=== PATIENT | male | born 1950 | race Caucasian/White ===

== ENCOUNTER 2020-08-31 08:54 | Outpatient (REF) | payer BC, SELFPAY ==
--- NOTE | ~2020-08-31 | US_ITS ---
EXAMINATION: US RETROPERITONEAL LIMITED (RENAL ONLY) CLINICAL INFORMATION: History of renal stones, left renal cancer. COMPARISON: Renal ultrasound dated 08/27/2019 and earlier TECHNIQUE: Real-time imaging of the kidneys. FINDINGS: RIGHT KIDNEY: 12.9 x 6.2 x 6.1 cm (SAG x AP x TRV). The kidney is normal in size, contour, and echogenicity. Renal cortical thickness is normal. No renal calculi or hydronephrosis. Multiple simple appearing right renal cysts are present, the largest measuring 5.7 cm in the upper pole the right kidney. There is a 1.4 cm cyst in the right mid kidney with a peripheral echogenic focus which may represent a calcification or adjacent calcified vessel. This finding has been present across multiple prior studies, for example 11/28/2016 image LEFT KIDNEY: 11.7 x 5.5 x 6.2 cm (SAG x AP x TRV). The kidney is normal in size, contour, and echogenicity. Renal cortical thickness is normal. No hydronephrosis. Multiple left renal cysts are present the largest is exophytic from the upper pole, 3 cm in diameter. There is a 3 mm echogenic calcified shadowing calculus in the left mid-lower kidney. US/US renal BI IMPRESSION: 3 mm nonobstructing left renal calculus. No hydronephrosis. Multiple bilateral renal cysts. There is a calcification in the periphery of a 1.4 cm right mid renal cyst, present previously as well.
[2020-08-31 11:03] LABS: Prostate Specific Antigen 2.38 ng/mL (<0.05-4.0)
== END 2020-08-31 08:55 | disposition home or self-care (01) ==
LOC: HO.US 08:54
PROVIDERS: Visit Provider Urology
DX: Z12.5 Encounter for screening for malignant neoplasm of prostate (principal); C64.2 Malignant neoplasm of left kidney, except renal pelvis; N40.1 Benign prostatic hyperplasia with lower urinary tract symptoms; N20.0 Calculus of kidney; Z87.442 Personal history of urinary calculi
CPT/HCPCS: 36415; 76775; 84153

== ENCOUNTER 2020-09-11 11:50 | Emergency (ER) | payer BC, SELFPAY ==
--- NOTE | ~2020-09-11 | CT_ITS ---
EXAMINATION: CT ABDOMEN AND PELVIS WITHOUT CONTRAST CLINICAL INFORMATION: Flank pain COMPARISON: Renal ultrasound 08/31/2020 TECHNIQUE: Multidetector volumetric imaging was performed from the superior aspect of the liver through the pubic symphysis. Sagittal and coronal reformatted images were obtained on the technologist's workstation. This CT examination was performed using dose optimization techniques as appropriate, variously including the following: *Automated exposure control *Adjustment of mA and/or kV according to patient size (this includes techniques or standardized protocols for targeted exams where dose is matched to indication/reason for exam; i.e. extremities or head) *Use of iterative reconstruction technique DLP: 579 mGy-cm FINDINGS: LUNG BASES: The visualized lung bases are unremarkable. LIVER, GALLBLADDER, AND BILIARY TREE: The liver is normal in size, shape, and attenuation. There is a 1.2 cm and 1.6 cm hypodense lesions in right hepatic lobe and a slightly larger 1.5 cm hypodense lesion left hepatic lobe. These were visualized on the previous CT abdomen exam 06/01/2015 and are most likely simple cysts. The gallbladder is unremarkable with no evidence of radiopaque gallstones, gallbladder wall thickening, or obvious pericholecystic inflammatory changes. PANCREAS: Unremarkable. SPLEEN: Unremarkable. ADRENAL GLANDS: There is a focal nodular thickening 1 cm medial limb left adrenal gland. The right adrenal gland is unremarkable. KIDNEYS AND URETERS: The kidneys are normal in size, shape, and attenuation. There are several nonobstructive radiopaque renal calculi right kidney with largest calculi measuring 8 mm in midpole right kidney. A few scattered radiopaque calculi seen in the mid and lower pole left kidney. Mild bilateral perinephric stranding is seen. There is a complex hyperdense exophytic lesion lateral cortex lower pole left kidney and a complex cyst. There are several hypodense bilateral exophytic and right peripelvic cysts. There is a 5 mm nonobstructive left UVJ stone with mild hydroureteronephrosis. In addition there is 2 mm nonobstructive radiopaque calculi in the dilated segment of distal left ureter on sagittal image 49/8. BLADDER: Unremarkable. GASTROINTESTINAL TRACT: There is scattered stool, gas and diverticuli seen throughout the colon without any significant distention. The small bowel loops are normal caliber. Appendix is normal caliber. There is no free air or free fluid. ABDOMINAL WALL: There are small umbilical hernia containing fat. A prominent right inguinal canal and soft tissue density visualized. LYMPH NODES: Normal. VASCULAR: Unremarkable. PELVIC VISCERA: Prostate gland is mildly enlarged. No abnormal pelvic mass or lymph node seen. OSSEOUS STRUCTURES: Mild degenerative disc changes L5-S1 disc level with ventral and posterior spondylosis mild degenerative disc changes at the T11-T12 disc level is noted. CT/CT abdomen pelvis wo con IMPRESSION: 5 mm nonobstructive left UVJ stone with mild hydroureteronephrosis. There is a small 2 mm nonobstructive stone in a dilated left distal ureter. Bilateral renal cysts with a complex cyst/lesion lower pole left kidney. Question hemorrhagic or proteinaceous cyst. Small umbilical hernia. Soft tissue density seen in the right inguinal canal likely prominent vessels
[2020-09-11 11:53] VITALS: PULSE 78; RESP 18; TEMP 36.4; O2SAT 98; BMI 27.1
--- NOTE | 2020-09-11 12:30 | ED.ABDPAIN ---
HPI - Abdominal Pain General Chief Complaint: Abdominal Pain Stated Complaint: flank pain, history of kidney stones Time Seen by Provider: 09/11/20 12:29 Source: patient Mode of arrival: ambulatory Limitations: no limitations History of Present Illness HPI narrative: 70-year-old male who reports prior history of recurrent renal calculi states around 02:30 he started having sharp stabbing pains in the left-sided flank that has kept him up since. He denies any urinary flow changes or hematuria, dysuria, fever or chills. States there is associated nausea secondary to the pain. MD elicited complaint: flank pain Pertinent past history: kidney stones Onset (ago): hour(s) Pain Consistency: constant Location: L flank Severity: severe Quality: stabbing Radiation: none Migration to: no migration Exacerbating factors: nothing Relieving factors: nothing Associated symptoms: denies other symptoms Related Data Previous Rx's Medication Instructions Recorded ibuprofen 800 mg PO Q8H PRN #30 tab 09/11/20 oxycodone 5 mg PO Q8H PRN 3 Days #10 tab 09/11/20 tamsulosin [Flomax] 0.4 mg PO DAILY 14 Days #14 cap 09/11/20 Allergies Allergy/AdvReac Type Severity Reaction Status Date / Time No Known Allergies Allergy Verified 09/11/20 11:58 [No Known Allergies*] Review of Systems Review of Systems Constitutional: No Weight loss, No Fever, No Chills, No Night Sweats, No Fatigue, No Malaise ENT/Mouth: No Hearing loss, No Ear Pain, No Nasal Congestion, No Sinus Pain, No Hoarseness, No sore throat, No Rhinorrhea, No Swallowing Difficulty Eyes: No Eye Pain, No Swelling, No Redness, No Foreign Body, No Discharge, No Vision Changes Cardiovascular: No Chest Pain, No SOB, No Dyspnea on Exertion, No Orthopnea, No Edema, No Palpitations Respiratory: No Cough, No Sputum, No Wheezing, No Smoke Exposure, No Dyspnea Gastrointestinal:+ Nausea, No Vomiting, No Diarrhea, No Constipation, + abdominal Pain as noted per HPI, No Hematochezia, No Melena Genitourinary: No Dysuria, No Urinary Frequency, No Hematuria, No Urinary Incontinence, No Urgency, No Urinary Flow Changes, No Hesitancy Musculoskeletal: No joint pain, No Myalgias, No Joint Swelling Skin: No Skin Lesions, No rash Neuro: No Weakness, No Numbness, No Paresthesias, No Loss of Consciousness, No Dizziness, No Headache Psych: No Social Issues Heme/Lymph: No Bruising, No Bleeding,No Lymphadenopathy Endocrine: No Polyuria, No Polydipsia, No Temperature Intolerance Yes all other systems are reviewed and are negative Physical Exam Vital Signs: Vital Signs: Last Vital Signs Temp 98.5 F 09/11/20 15:59 Pulse 70 09/11/20 15:59 Resp 17 09/11/20 15:59 BP 162/81 H 09/11/20 15:59 Pulse Ox 98 09/11/20 15:59 Body Mass Index 27.1 Reviewed Const: General: cooperative and in distress (Pain) moderate; No intoxicated appearing Nutritional Appearance: average body habitus Orientation/consciousness: patient oriented x3 HENMT: Head: Yes normal to inspection Ears: hearing grossly normal bilaterally Eyes: General: appearance normal, both eyes and all related structures Visual Truong: normal visual truong by confrontation Neck: Neck: Yes normal visual inspection, No positive Brudzinski's sign, No positive Kernig's sign and No tender Thyroid: Thyroid normal Chest: Chest palpation & inspection: normal inspection of the chest Resp: Effort & Inspection: normal respiratory effort Cardio: Jugular venous distension: no JVD Rate: regular rate Rhythm: regular rhythm Heart sounds: S1 normal heart sound present and S2 normal heart sound present GI: Inspection: Yes normal to inspection Palpation (GI): Firmness to palpation present (GI) Percussion: Yes normal to percussion Auscultation: normal bowel sounds : General: Yes CVA tenderness on the left and diffuse Skin: General skin exam: no rashes or lesions noted Neuro: General: patient oriented x3 Extrem: General: Yes normal to inspection Course Course Course Narrative: Labs without leukocytosis UA with positive RBC otherwise no infection and renal function slightly [address] scan shows 5 mm nonobstructing left UVJ stone with mild hydro as well a small 2 mm nonobstructive stone in the dilated left distal ureter. He is now essentially pain-free after IV fluids Zofran and Toradol and Flomax. Plan for follow-up with Dr. Schmitt. Will discharge home with Flomax NSAIDs and stronger analgesia. Clear precaution return follow-up instructions provided. He is well nontoxic appearing. Stable for discharge. MDM - Abdominal Pain Differential Diagnosis Differential diagnosis: Likely abdominal pain, calculus of kidney, diverticulitis and renal colic; Unlikely aortic dissection, acute appendicitis, bowel perforation, constipation, pancreatitis, peptic ulcer disease and small bowel obstruction Medical Records Attestation: I reviewed the patient's medical records. Lab Data Attestation: I reviewed the patient's lab results. Result diagrams: 09/11/20 12:44 09/11/20 12:44 Labs: Lab Results 09/11/20 09/11/20 09/11/20 Range/Units 12:11 12:44 12:44 WBC 10.8 (4.8-10.8) X10*3/uL RBC 5.21 (4.60-5.80) X10*6/uL Hgb 14.2 (14.0-18.0) g/dl Hct 43.2 (42-52) % MCV 82.9 (80-98) fL MCH 27.3 (27.0-33.0) pg MCHC 32.9 (31.0-36.0) g/dl RDW 13.2 (11.0-16.0) % Plt Count 225 (160-400) X10*3/uL MPV 11.6 (9.4-12.4) fL Immature Gran % (Auto) 0.4 (0.0-0.4) % Neut % (Auto) 84.7 H (45-73) % Lymph % (Auto) 8.9 L (20-40) % [place] % (Auto) 5.5 (2-11) % Eos % (Auto) 0.1 (0-4) % Baso % (Auto) 0.4 (0-2) % Lymph # (Auto) 1.0 L (1.2-4.9) X10*3/uL [place] # (Auto) 0.6 (0.1-1.2) X10*3/uL Eos # (Auto) 0.0 (0.0-0.4) X10*3/uL Baso # (Auto) 0.0 (0.0-0.2) X10*3/uL Abs Immat Gran (auto) 0.04 H (0.00-0.03) X10*3/uL Absolute Neuts (auto) 9.1 H (2.0-8.3) X10*3/uL Absolute Nucleated RBC 0.000 (0.0-0.012) X10*3/uL Nucleated RBC % (auto) 0.0 (0.0-0.2) /100WBC Sodium 142 (135-145) mmol/L Potassium 4.2 (3.3-5.1) mmol/L Chloride 109 H (96-108) mmol/L Carbon Dioxide 23 (22-29) mmol/L Anion Gap 14 (12-20) BUN 18 H (9-16) mg/dL Creatinine 1.28 (0.5-1.4) mg/dL Estim Creat Clear Calc 59.7 Estimated GFR 56 Random Glucose 118 H (60-115) mg/dL Calcium 9.0 (8.4-10.2) mg/dL Total Bilirubin 0.5 (0.0-1.0) mg/dL AST 20 (5-37) U/L ALT 26 (0-40) U/L Alkaline Phosphatase 53 (39-117) U/L Total Protein 6.9 (6.5-8.0) g/dL Albumin 4.4 (3.5-5.0) g/dL Urine Color YELLOW Urine Appearance CLEAR Urine pH 6.5 (5.0-8.0) Ur Specific [place] 1.020 (1.005-1.025) Urine Protein NEG (NEG-TRACE) MG/DL Urine Glucose (UA) NEG (NEG) MG/DL Urine Ketones NEG (NEG) MG/DL Urine Blood 2+ H (NEG) Urine Nitrite NEG (NEG) Ur Leukocyte Esterase NEG (NEG) Urine RBC 10-14 H (0) /HPF Urine WBC 0 (0-4) /HPF Ur Squamous Epith Cells TRACE /LPF Urine Bacteria NONE /LPF Imaging Data Abdominal/pelvis CT: Radiologist's impression: [address] [id number] Scan ReportSigned Patient: Carla Stewart#: [id number]: 1Acct:[id number]/Sex: 70 / MADM Date: 09/11/20Loc: Tori Dr: Ordering Physician: Landen Fofana NP Date of Service: 09/11/20 Procedure(s): CT abdomen pelvis wo con Accession Number(s): [id number] cc: Landen Fofana BRAND DESIGNER~ EXAMINATION: CT ABDOMEN AND PELVIS WITHOUT CONTRAST CLINICAL INFORMATION: Flank pain COMPARISON: Renal ultrasound 08/31/2020 TECHNIQUE: Multidetector volumetric imaging was performed from the superior aspect of the liver through the pubic symphysis. Sagittal and coronal reformatted images were obtained on the technologist's workstation. This CT examination was performed using dose optimization techniques as appropriate, variously including the following: *Automated exposure control *Adjustment of mA and/or kV according to patient size (this includes techniques or standardized protocols for targeted exams where dose is matched to indication/reason for exam; i.e. extremities or head) *Use of iterative reconstruction technique DLP: 579 mGy-cm FINDINGS: LUNG BASES: The visualized lung bases are unremarkable. LIVER, GALLBLADDER, AND BILIARY TREE: The liver is normal in size, shape, and attenuation. There is a 1.2 cm and 1.6 cm hypodense lesions in right hepatic lobe and a slightly larger 1.5 cm hypodense lesion left hepatic lobe. These were visualized on the previous CT abdomen exam 06/01/2015 and are most likely simple cysts. The gallbladder is unremarkable with no evidence of radiopaque gallstones, gallbladder wall thickening, or obvious pericholecystic inflammatory changes. PANCREAS: Unremarkable. SPLEEN: Unremarkable. ADRENAL GLANDS: There is a focal nodular thickening 1 cm medial limb left adrenal gland. The right adrenal gland is unremarkable. KIDNEYS AND URETERS: The kidneys are normal in size, shape, and attenuation. There are several nonobstructive radiopaque renal calculi right kidney with largest calculi measuring 8 mm in midpole right kidney. A few scattered radiopaque calculi seen in the mid and lower pole left kidney. Mild bilateral perinephric stranding is seen. There is a complex hyperdense exophytic lesion lateral cortex lower pole left kidney and a complex cyst. There are several hypodense bilateral exophytic and right peripelvic cysts. There is a 5 mm nonobstructive left UVJ stone with mild hydroureteronephrosis. In addition there is 2 mm nonobstructive radiopaque calculi in the dilated segment of distal left ureter on sagittal image 49/8. BLADDER: Unremarkable. GASTROINTESTINAL TRACT: There is scattered stool, gas and diverticuli seen throughout the colon without any significant distention. The small bowel loops are normal caliber. Appendix is normal caliber. There is no free air or free fluid. ABDOMINAL WALL: There are small umbilical hernia containing fat. A prominent right inguinal canal and soft tissue density visualized. LYMPH NODES: Normal. VASCULAR: Unremarkable. PELVIC VISCERA: Prostate gland is mildly enlarged. No abnormal pelvic mass or lymph node seen. OSSEOUS STRUCTURES: Mild degenerative disc changes L5-S1 disc level with ventral and posterior spondylosis mild degenerative disc changes at the T11-T12 disc level is noted. CT/CT abdomen pelvis wo con IMPRESSION: 5 mm nonobstructive left UVJ stone with mild hydroureteronephrosis. There is a small 2 mm nonobstructive stone in a dilated left distal ureter. Bilateral renal cysts with a complex cyst/lesion lower pole left kidney. Question hemorrhagic or proteinaceous cyst. Small umbilical hernia. Soft tissue density seen in the right inguinal canal likely prominent vessels Dictated By:THI GIBSON MDSigned By:<Electronically signed by THI GIBSON MD in OV>09/11/20 1451 DD/ 1400TD/TT: Vacuum Metalizing Supervisor: [facility] [place] Discharge Plan Discharge Clinical Impression: Calculus of kidney Patient Disposition: Home, Self-Care Instructions: Kidney Stones (ED), How to Strain Your Urine (ED) Additional Instructions: Follow-up with Dr. Schmitt as discussed Take medication prescribed For [id number] pain take ibuprofen For severe pain take oxycodone; do not drink or drive while taking this medication Return if any concerns worsening symptoms Thank you Prescriptions: New ibuprofen 800 mg tablet 800 mg PO Q8H PRN (Reason: pain) Qty: 30 RF: 0 tamsulosin [Flomax] 0.4 mg capsule 0.4 mg PO DAILY 14 Days Qty: 14 RF: 0 oxycodone 5 mg tablet 5 mg PO Q8H PRN (Reason: pain) 3 Days Qty: 10 RF: 0 Referrals: Dao Schmitt MD [Physician] - 2 days [facility] Past Medical History Medical History H/O nephrolithotomy with removal of calculi H/O renal calculi Social History Social History Alcohol intake: current Alcohol intake frequency: holidays/special occasions only Smoking Status: Never smoker Use of substances other than those prescribed or required for medical reasons: No Advance Directives: Yes Advance Directives Information Provided: Yes Advance Directives on File: No
[2020-09-11 12:36] LABS: Glucose Urine UA NEG (NEG); Leukocyte Esterase Urine NEG (NEG); Nitrite Urine NEG (NEG); PH 6.5 (5.0-8.0); Urine Blood 2+ (NEG); Urine Ketones NEG (NEG); Urine Protein NEG (NEG-TRACE)
[2020-09-11 12:38] LABS: Appearance Urine CLEAR; Color Urine YELLOW
[2020-09-11 12:47] LABS: Squamous Epithelial Cell Urine TRACE /LPF; WBC Urine 0 /HPF (0-4)
[2020-09-11] MEDS: 0.9 % Sodium Chloride 1,000 ML 999 ML IV ×2 (12:47→14:06)
[2020-09-11] MEDS: Ketorolac Tromethamine 30 MG/ML VIAL IVPUSH (12:47)
[2020-09-11] MEDS: ondansetron HCL 4 MG/2 ML VIAL IVPUSH (12:47)
--- NOTE | 2020-09-11 12:54 | PC.NURSE ---
iv inserted, labs drawn, pt medicated per order, will continue to monitor.
[2020-09-11 12:56] LABS: MANUAL DIFF FLAG NO
[2020-09-11 13:01] LABS: Basophils Percent Auto 0.4 % (0-2); Eosinophils Percent Auto 0.1 % (0-4); Hematocrit 43.2 % (42-52); Hemoglobin 14.2 g/dl (14.0-18.0); Imm Gran Abs Auto 0.04 X10*3/uL (0.00-0.03); Imm Gran Pct Auto 0.4 % (0.0-0.4); Lymphocytes Percent Auto 8.9 % (20-40); Mean Corpuscular HGB Conc 32.9 g/dl (31.0-36.0); Mean Corpuscular Hemoglobin 27.3 pg (27.0-33.0); Mean Corpuscular Volume 82.9 fL (80-98); Mean Platelet Volume 11.6 fL (9.4-12.4); Monocytes Absolute Auto 0.6 X10*3/uL (0.1-1.2); Monocytes Percent Auto 5.5 % (2-11); Neutrophils Absolute Auto 9.1 X10*3/uL (2.0-8.3); Neutrophils Percent Auto 84.7 % (45-73); Platelet Count 225 X10*3/uL (160-400); Red Blood Count 5.21 X10*6/uL (4.60-5.80); Red Cell Distribution Width 13.2 % (11.0-16.0); White Blood Count 10.8 X10*3/uL (4.8-10.8)
[2020-09-11 13:21] VITALS: BP 154/105; PULSE 78; RESP 16; TEMP 36.8; O2SAT 98
[2020-09-11 13:35] LABS: Alanine Aminotransferase 26 U/L (0-40); Albumin Level 4.4 g/dL (3.5-5.0); Alkaline Phosphatase 53 U/L (39-117); Anion Gap 14 (12-20); Aspartate Amino Transferase 20 U/L (5-37); Bilirubin Total 0.5 mg/dL (0.0-1.0); Blood Urea Nitrogen 18 mg/dL (9-16); Carbon Dioxide 23 mmol/L (22-29); Chloride 109 mmol/L (96-108); Creatinine Clr Calc Pharmacy 59.7; Estimated Glomerular Filt Rate 56; Glucose Random 118 mg/dL (60-115); Potassium 4.2 mmol/L (3.3-5.1); Sodium 142 mmol/L (135-145); Total Protein 6.9 g/dL (6.5-8.0)
[2020-09-11] MEDS: Tamsulosin HCL 0.4 MG CAPSULE PO (14:04)
--- NOTE | 2020-09-11 14:08 | PC.NURSE ---
patient medicated per order, awaiting ct scan
[2020-09-11 15:59] VITALS: BP 162/81; PULSE 70; RESP 17; TEMP 36.9; O2SAT 98
--- NOTE | 2020-09-11 16:01 | PC.NURSE ---
patient a&ox3, pt inquiring if he can have a 3rd bag of IVF and would like to speak with the provider, provider has been notified, will continue to monitor.
== END 2020-09-11 17:13 | disposition home or self-care (01) ==
PROVIDERS: Nurse Practitioner Primary Care; Emergency Provider Emergency Medicine; PCP Internal Medicine
DX: N13.2 Hydronephrosis with renal and ureteral calculous obstruction (principal); R11.0 Nausea; Q61.02 Congenital multiple renal cysts; K42.9 Umbilical hernia without obstruction or gangrene; Z87.442 Personal history of urinary calculi
CPT/HCPCS: 36415; 74176; 80053; 81001; 85025; 96360; 96361; 96374; 96375; 99284; J1885; J2405

== ENCOUNTER → 2020-10-07 10:08 | Outpatient (BNVA) | payer BC, SELFPAY | PROVIDERS: PCP Internal Medicine; Visit Provider Urology | DX: N20.0 Calculus of kidney (principal); C64.9 Malignant neoplasm of unspecified kidney, except renal pelvis; N40.1 Benign prostatic hyperplasia with lower urinary tract symptoms | CPT/HCPCS: 81002 ==

== ENCOUNTER 2020-10-08 | Outpatient (REF) | payer BC, SELFPAY | END 2020-10-08 00:01 | disposition home or self-care (01) | LOC: HO.LNP | PROVIDERS: Visit Provider Urology | DX: N20.0 Calculus of kidney (principal) | CPT/HCPCS: 82365 ==

== ENCOUNTER 2021-03-31 09:37 | Outpatient (REF) | payer BC, SELFPAY ==
--- NOTE | ~2021-03-31 | US_ITS ---
EXAMINATION: US RETROPERITONEAL LIMITED (RENAL ONLY) CLINICAL INFORMATION: Calculus of kidney. COMPARISON: CT abdomen and pelvis 09/11/2020. Renal ultrasound 08/31/2020 and 08/27/2019. KUB 11/11/2015 and 08/12/2015. TECHNIQUE: Real-time imaging of the kidneys. FINDINGS: RIGHT KIDNEY: 12.6 x 6.5 x 6.7 cm (SAG x AP x TRV). The kidney is normal in size, contour, and echogenicity. Renal cortical thickness is normal. There is no caliectasis or hydronephrosis.. There are several renal cyst. 1. Upper pole lateral cyst measuring 5.9 x 4.2 x 5.5 cm. 2. upper pole cyst measuring 3.2 x 4.1 x 3.7 cm. There are 2 echogenic nonobstructive calculi mid and lower pole measuring 0.4 x 0.3 x 0.4 cm and 0.4 x 0.5 x 0.4 cm. LEFT KIDNEY: 11.7 x 6.1 x 5.8 cm (SAG x AP x TRV). The kidney is normal in size, contour, and echogenicity. Renal cortical thickness is normal. There are several anechoic cysts. 1. Midpole and medial cyst measures 3.2 x 3.1 x 3.1 cm. 2. Lower pole cyst measures 0.9 x 0.8 x 0.9 cm. 3. A lower pole cyst measures 1.0 x 0 0.7 to 0.5 cm. There are several echogenic stones. 1. A lower pole stone measures 0.4 x 0.4 x 0.4 cm. 2. Lower pole stone measuring 0.4 x 0.3 x 0.3 cm. 3. Lower pole stone measures 0.4 x 0.3 x 0.6 cm. There is a focal lower pole caliectasis and/or peripelvic cyst. US/US renal BI IMPRESSION: There are several bilateral renal cyst. There are nonobstructive bilateral echogenic renal calculi as well. There is left kidney lower pole caliectasis versus peripelvic cyst..
== END 2021-03-31 09:38 | disposition home or self-care (01) ==
LOC: HO.HMGCX 09:37
PROVIDERS: Visit Provider Urology
DX: N20.0 Calculus of kidney (principal)
CPT/HCPCS: 76775

== ENCOUNTER → 2021-06-16 09:58 | Outpatient (BNVA) | payer BC, SELFPAY | PROVIDERS: PCP Internal Medicine; Visit Provider Urology ==

== ENCOUNTER 2021-08-20 11:06 | Outpatient (REF) | payer BC, SELFPAY ==
[2021-08-20 12:51] LABS: MANUAL DIFF FLAG NO
[2021-08-20 12:55] LABS: Basophils Absolute Auto 0.1 X10*3/uL (0.0-0.2); Basophils Percent Auto 0.7 % (0-2); Eosinophils Absolute Auto 0.2 X10*3/uL (0.0-0.4); Eosinophils Percent Auto 2.7 % (0-4); Hematocrit 42.6 % (42.0-52.0); Hemoglobin 13.7 g/dl (14.0-18.0); Imm Gran Abs Auto 0.01 X10*3/uL (0.00-0.03); Imm Gran Pct Auto 0.1 % (0.0-0.4); Lymphocytes Absolute Auto 1.9 X10*3/uL (1.2-4.9); Lymphocytes Percent Auto 26.1 % (20-40); Mean Corpuscular HGB Conc 32.2 g/dl (31.0-36.0); Mean Corpuscular Hemoglobin 26.7 pg (27.0-33.0); Mean Platelet Volume 11.8 fL (9.4-12.4); Monocytes Absolute Auto 0.6 X10*3/uL (0.1-1.2); Monocytes Percent Auto 7.8 % (2-11); Neutrophils Absolute Auto 4.7 x10*3/uL (2.0-8.3); Neutrophils Percent Auto 62.6 % (45-73); Platelet Count 212 X10*3/uL (160-400); Red Blood Count 5.13 X10*6/uL (4.60-5.80); Red Cell Distribution Width 13.3 % (11.0-16.0); White Blood Count 7.4 X10*3/uL (4.8-10.8)
[2021-08-20 13:03] LABS: Alanine Aminotransferase 26 U/L (0-40); Albumin Level 4.3 g/dL (3.5-5.0); Alkaline Phosphatase 51 U/L (39-117); Anion Gap 11 (12-20); Aspartate Amino Transferase 21 U/L (5-37); Bilirubin Total 0.6 mg/dL (0.0-1.0); Blood Urea Nitrogen 16 mg/dL (9-16); Calcium 9.5 mg/dL (8.4-10.2); Carbon Dioxide 25 mmol/L (22-29); Chloride 108 mmol/L (96-108); Cholesterol 255 mg/dL; Estimated Glomerular Filt Rate > 60; Glucose Fasting 100 mg/dL (60-99); HDL Cholesterol 67 mg/dL; LDL Cholesterol Calculated 165 mg/dl; Potassium 4.1 mmol/L (3.3-5.1); Sodium 140 mmol/L (135-145); Total Protein 6.9 g/dL (6.5-8.0); Triglycerides 119 mg/dL
== END 2021-08-20 11:07 | disposition home or self-care (01) ==
LOC: HO.MANLDS 11:06
PROVIDERS: PCP Internal Medicine; Visit Provider Internal Medicine
DX: Z13.220 Encounter for screening for lipoid disorders (principal)
CPT/HCPCS: 36415; 80053; 80061; 85025

== ENCOUNTER 2021-11-25 11:03 | Outpatient (REF) | payer BC, SELFPAY ==
--- NOTE | ~2021-11-25 | US_ITS ---
EXAMINATION: US RETROPERITONEAL LIMITED (RENAL ONLY) CLINICAL INFORMATION: Calculus of kidney. COMPARISON: US retroperitoneal limited (renal only) 03/31/2021 and 08/31/2020. CT abdomen and pelvis without contrast 09/11/2020. XR abdomen KUB 11/11/2015 and 08/12/2015. TECHNIQUE: Real-time imaging of the kidneys. FINDINGS: RIGHT KIDNEY: 12.5 x 6.6 x 7.7 cm (SAG x AP x TRV). The kidney is normal in size, contour, and echogenicity. Renal cortical thickness is within There are multiple stones. Largest stones measure 5 mm in the lower pole. There are multiple / 4 right renal cysts. The largest measures 6.3 x 4.1 x 1.5 cm exophytic to the lateral upper pole. Upper pole. No hydronephrosis. LEFT KIDNEY: 11.3 x 6.2 x 6.6 cm (SAG x AP x TRV). The kidney is normal in size, contour, and echogenicity. Renal cortical thickness is thin, particularly in the lower pole. There are multiple stones, largest measuring 7 x 3 mm and 5 x 9 mm in the mid to lower pole. There are multiple cysts / 3, largest measuring 2.8 x 3 x 3.2 cm in the upper pole. No hydronephrosis. US/US renal BI IMPRESSION: Bilateral renal stones. Bilateral renal cysts.
== END 2021-11-25 11:04 | disposition home or self-care (01) ==
LOC: HO.US 11:03
PROVIDERS: Visit Provider Urology
DX: N20.0 Calculus of kidney (principal)
CPT/HCPCS: 76775

== ENCOUNTER → 2021-12-15 11:14 | Outpatient (BNVA) | payer BC, SELFPAY | PROVIDERS: PCP Internal Medicine; Visit Provider Urology | DX: N40.1 Benign prostatic hyperplasia with lower urinary tract symptoms (principal); N20.0 Calculus of kidney; C64.9 Malignant neoplasm of unspecified kidney, except renal pelvis | CPT/HCPCS: 51798 ==

== ENCOUNTER 2022-06-13 11:16 | Outpatient (REF) | payer MEDICARE, SELFPAY ==
--- NOTE | ~2022-06-13 | XR_ITS ---
EXAMINATION: XR ABDOMEN KUB CLINICAL INDICATION: Renal calculus. COMPARISON: Ultrasound of 11/25/2021, CT of 09/11/2020, and KUB of 11/11/2015. TECHNIQUE: AP view of the abdomen. FINDINGS: The bowel gas pattern is normal with no evidence of ileus or obstruction. Psoas margins are intact. There is sacralization of L5. There is degenerative marginal spurring at multiple levels in the thoracic spine. Phleboliths are seen about the pelvis. No distal left ureteral calculus is appreciated as was seen on CT scan of 09/11/2020. Overlying the expected location of the right kidney, there is a 3 mm calculus seen overlying the expected location of the lower pole as well as a conglomerate of calcifications in the interpolar region measuring 1.4 x 0.6 cm in size. XR/XR KUB IMPRESSION: Right nephrolithiasis as described on this plain film study which is not as sensitive as CT would be.
== END 2022-06-13 11:17 | disposition home or self-care (01) ==
LOC: HO.XRAY 11:16
PROVIDERS: PCP Internal Medicine; Visit Provider Urology
DX: N20.0 Calculus of kidney (principal)
CPT/HCPCS: 74018

== ENCOUNTER → 2022-06-22 11:17 | Outpatient (BNVA) | payer MEDICARE, SELFPAY | PROVIDERS: PCP Internal Medicine; Visit Provider Urology | DX: N40.1 Benign prostatic hyperplasia with lower urinary tract symptoms (principal); N13.8 Other obstructive and reflux uropathy; N20.0 Calculus of kidney; C64.1 Malignant neoplasm of right kidney, except renal pelvis | CPT/HCPCS: 51798; 99212 ==

== ENCOUNTER 2023-06-02 09:31 | Outpatient (REF) | payer MEDICARE, SELFPAY ==
--- NOTE | ~2023-06-02 | US_ITS ---
EXAMINATION: US RETROPERITONEAL LIMITED (RENAL ONLY) CLINICAL INFORMATION: Calculus of kidney. COMPARISON: X-ray abdomen KUB 06/13/2022. Ultrasound retroperitoneal limited 11/25/2021 and 03/31/2021. CT abdomen and pelvis without contrast 09/11/2020. X-ray abdomen KUB 11/11/2015. TECHNIQUE: Real-time imaging of the kidneys. FINDINGS: RIGHT KIDNEY: 12.6 x 6.5 x 6.4 cm (SAG x AP x TRV). The kidney is normal in size, contour, and echogenicity. Renal cortical thickness is normal. There is a lower pole 3 mm echogenic focus consistent with a nonobstructing stone. There is a conglomerate of hyperechoic foci seen in the right kidney measuring 1.7 x 1.5 x 1.0 cm consistent with a cluster of calculi which can be seen on the prior CT scan (7:61). No hydronephrosis. Multiple benign Bosniak class I renal cysts are noted, the largest measuring 6.7 cm which require no additional imaging or follow up. No solid renal masses are seen. LEFT KIDNEY: 11.7 x 5.7 x 5.7 cm (SAG x AP x TRV). The kidney is normal in size, contour, and echogenicity. Renal cortical thickness is normal. Two mid pole echogenic foci are seen measuring 3 mm and 4 mm in size consistent with nonobstructing calculi. The previously seen left-sided lower pole caliectasis is no longer seen. No hydronephrosis at this time. Three renal cysts are noted, the largest in the upper pole measuring 3.6 cm. There is a smaller lower pole cyst measuring 1.1 cm which was seen on the CT scan to be hyperattenuating, therefore Bosniak class II. None of these cysts require any follow up. No solid renal masses are seen. US/US renal BI IMPRESSION: 1. Bilateral nonobstructing renal calculi. 2. Bilateral benign Bosniak class I and Bosniak class II renal cysts which require no follow up.
== END 2023-06-02 09:32 | disposition home or self-care (01) ==
LOC: HO.US 09:31
PROVIDERS: PCP Internal Medicine; Visit Provider Urology
DX: N20.0 Calculus of kidney (principal)
CPT/HCPCS: 76775

== ENCOUNTER 2023-06-27 11:22 | Outpatient (AMB) | payer MEDICARE, SELFPAY ==
--- NOTE | 2023-06-27 11:41 | MHC.OFFVIS ---
Intake Intake Visit Reasons: 1Y US(Set) Allergies No Known Allergies [No Known Allergies*] Allergy (Verified 06/22/22 11:22) Medication List - Last Reconciled 06/27/23 by Dao Schmitt MD oxycodone 5 mg PO Q8H PRN 3 days pyridoxine (vitamin B6) 50 mg PO DAILY 90 days HPI HPI Comments History of Present Illness Details Acosta is a pleasant male. He is a patient of Dr. Mera. 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 [place] Nephrolithiasis Ongoing nephrolithiasis Prior stone passage Imaging - 05/30 renal ultrasound with bilateral cysts up to 5 cm and bilateral small stones up to 3 mm - 12/29 renal ultrasound - 06/30 KUB - small stone Stone composition - 09/27 calcium oxalate monohydrate 80% Continued management B6 Renal cell carcinoma Status post cryoablation right side with renal cyst Recent imaging shows minimal change BPH Doing well from a urinary point of view No current therapy PSA - 08/30 2.4 PFSH Medical History BPH loc w urin obs/LUTS H/O nephrolithotomy with removal of calculi H/O renal calculi Malignant neoplasm of kidney Mild acid reflux Surgical History History of lithotripsy Social History Alcohol intake: current Alcohol intake frequency: holidays/special occasions only Review of Systems Const All systems reviewed & are unremarkable except as noted in HPI and below Reports no additional complaints Resp Reports no additional complaints GI Reports no additional complaints Reports as per HPI Musc Reports no additional complaints Physical Exam Telemedicine evaluation Appropriate responses Regular breathing rate and rhythm HEENT Head: Yes normal to inspection Ears: hearing grossly normal bilaterally Eyes General: appearance normal, both eyes and all related structures Neck Neck: Yes normal visual inspection Chest Chest palpation & inspection: normal inspection of the chest Resp Effort & Inspection: normal respiratory effort and able to speak in complete sentences Assessment & Plan Assessment & Plan (1) Nephrolithiasis: Code(s): N20.0 - Calculus of kidney (2) BPH loc w urin obs/LUTS: Code(s): N40.1 - Benign prostatic hyperplasia with lower urinary tract symptoms (3) Malignant neoplasm of kidney: Code(s): C64.9 - Malignant neoplasm of unspecified kidney, except renal pelvis Plan Continue surveillance Orders: Orders US renal BI 364 Days N20.0 - Calculus of kidney Medications: New pyridoxine (vitamin B6) 50 mg PO DAILY 90 tabs 3RF 90 days N20.0 - Calculus of kidney, N13.2 - Hydronephrosis with renal and ureteral calculous obstruction Refilled oxycodone 5 mg PO Q8H PRN 10 tabs 0RF pain 3 days Patient Instructions: Imaging studies, laboratory and physical exam results were discussed and reviewed in detail. No major barriers to patient understanding were identified. An opportunity to ask questions regarding the treatment plan was provided. All questions were answered. The patient expressed understanding and agreement with the above treatment plan. The patient is aware they should contact our office by phone for worsening of their current condition or the appearance of new urologic symptoms. Compliance is encouraged with any medications and followup testing that is ordered. It is a privilege to participate in the urologic care of your patient. If you have any questions or concerns regarding treatment for the above conditions, or other urologic issues, please do not hesitate to contact me. The office telephone contact is [phone]. This note is constructed using voice recognition software. While every effort has been made to ensure accuracy display screen fabricator errors may have been included. Yours sincerely, Dr Dao Schmitt MD, [facility] - Urology Providers of Expert, Compassionate Care for the Genitourinary System Telehealth Telehealth Location of provider rendering services: practice address Location of patient: address on file Patient Identification confirmed using: Name, : Yes Telehealth method: video Patient verbally consented to treatment: Yes Patient verbally consented to billing insurance company: Yes Patient informed of any privacy concerns related to visit: Yes Coding Level of Care Code Tele Est Pt Level 4 (65396) Diagnoses Nephrolithiasis N20.0 BPH loc w urin obs/LUTS N40.1 Malignant neoplasm of kidney C64.9
== END 2023-06-27 12:09 | disposition home or self-care (01) ==
LOC: HO.HUSH 11:22
PROVIDERS: PCP Internal Medicine; Visit Provider Urology
DX: N20.0 Calculus of kidney (principal); N40.1 Benign prostatic hyperplasia with lower urinary tract symptoms; C64.9 Malignant neoplasm of unspecified kidney, except renal pelvis
CPT/HCPCS: 99213

== ENCOUNTER → 2023-06-27 11:22 | Outpatient (BNVA) | payer MEDICARE, SELFPAY | PROVIDERS: PCP Internal Medicine; Visit Provider Urology ==

== ENCOUNTER 2024-06-11 07:57 | Outpatient (REF) | payer MEDICARE, SELFPAY | END 2024-06-11 07:58 | disposition home or self-care (01) | LOC: HO.US 07:57 | PROVIDERS: PCP Internal Medicine; Visit Provider Urology | DX: N20.0 Calculus of kidney (principal) | CPT/HCPCS: 76775 ==

== ENCOUNTER 2024-06-28 11:10 | Outpatient (AMB) | payer MEDICARE, SELFPAY ==
--- OUTSIDE RECORDS SUMMARY | 2024-06-28 11:21 | XMS_ITS | Data Portability ---
Author Organization [facility] Address [address] [place] [address] Assessment Encounter Date Assessment Date Assessment LastModified by Organization Details LastModified Time 10/05/2020 10/05/2020 [id number] [place] [id number] (DIRECTOR TITLE) MDM MODERATE MUST MEET 2 OUT OF 3 ELEMENTS: PROBLEMS, DATA OR RISK ELEMENT 1: PROBLEMS ADDRESSED OR 2 OR MORE STABLE CHRONIC ILLNESSES OR OR OR ELEMENT 2: DATA MUST MEET 1 OF 3 CATEGORIES CATEGORY 1: REVIEW OF PRIOR EXTERNAL NOTES, REVIEW OF RESULTS, ORDERING OF EACH TEST, ASSESSMENT REQUIRING INDEPENDENT HISTORIAN OR CATEGORY 2: OR CATEGORY 3: ELEMENT 3: RISK RISK OF COMPLICATIONS AND/OR MORBIDITY OR MORTALITY OF PATIENT MANAGEMENT PROVIDER MUST THOROUGHLY DOCUMENT EACH ELEMENT THAT IS COVERED Not available 10/05/2020 16:11:54 08/11/2021 08/11/2021 [id number] [place] [id number] (DIRECTOR TITLE) MDM MODERATE MUST MEET 2 OUT OF 3 ELEMENTS: PROBLEMS, DATA OR RISK ELEMENT 1: PROBLEMS ADDRESSED 1 OR MORE CHRONIC ILLNESS WITH EXACERBATION OR 2 OR MORE STABLE CHRONIC ILLNESSES OR 1 UNDIAGNOSED NEW PROBLEM OR 1 ACUTE ILLNESS W/SYMPTOMS OR 1 ACUTE COMPLICATED INJURY ELEMENT 2: DATA MUST MEET 1 OF 3 CATEGORIES CATEGORY 1: REVIEW OF PRIOR EXTERNAL NOTES, REVIEW OF RESULTS, ORDERING OF EACH TEST, ASSESSMENT REQUIRING INDEPENDENT HISTORIAN OR CATEGORY 2: INDEPENDENT INTERPRETATION OF TESTS BY ANOTHER PHYSICIAN OR SPECIALIST OR CATEGORY 3: DISCUSSION OF MGT OR TEST INTERPRETATION W/EXTERNAL PHYSICIAN OR SPECIALIST ELEMENT 3: RISK RISK OF COMPLICATIONS AND/OR MORBIDITY OR MORTALITY OF PATIENT MANAGEMENT PROVIDER MUST THOROUGHLY DOCUMENT EACH ELEMENT THAT IS COVERED Not available 08/11/2021 10:36:32 Plan of Treatment Reminders Order Date Submit Date Provider Last Modified By Organization Details Last Modified Time Details Appointments None recorded. Lab lipid panel, serum 2021 022 [facility], [address] [place] [address], [id number], 2 11:15:51 CMP, serum or plasma 2021 022 [facility], [address] [place] [address], [address], 2 11:15:51 CBC w/ auto diff 2021 022 [facility], [address] [place] [address], [address], 2 11:15:51 CMP, serum or plasma 2023 024 [facility], [address] [place] [address], [address], 4 11:38:18 CBC w/ auto diff 2023 024 [facility], [address] [place] [address], [address], 4 12:55:50 PSA, serum or plasma 2023 024 [facility], [address] [place] [address], [address], 4 13:26:01 lipid panel, blood 2023 024 [facility], [address] [place] [address], [address], 4 13:24:29 Referral dermatolog ist referral - also has several lesion on trunk 2020 021 roel Hartmann MD, [address], [place], [address], 1 08:40:24 Procedures None recorded. Surgeries None recorded. Imaging None recorded. Medication Orders None recorded. Patient TargetsNo targets recorded. 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 [facility] (Medical Records) [address] [place] [address], [id number], 06/05/2023 09:32:35 Result Notes None recorded. Problems Name Problem SNOMED Code Status Onset Date Resolution Date Notes Provider Name and Address Organization Details Recorded Time Low back pain 039651298 Active 2020 Norman Mera DO [address] [place] [address], [phone], [facility] 15:46:23 Polyp of colon 55719318 Active 2020 Norman Mera DO [address] [place] [address], [address], [facility] 15:46:33 Diverticul osis of sigmoid colon 894765989 Active 2020 Norman Mera DO [address] [place] [address], [address], [facility] 15:46:42 Internal hemorrhoid s 53575958 Active 2020 Norman Mera DO [address] [place] [address], [address], [facility] 15:46:49 Cyst of kidney 323485807 Active 2020 Nomran Mera, DO [address] [place] [address], [address], [place] [facility] 15:47:00 Neoplasm of kidney 126887983 Active 2020 Norman Mera, DO [address] [place] [address], [address], [place] [facility] 15:47:10 Malignant tumor of kidney 664004607 Active 2020 Norman Mera, DO [address] [place] [address], [address], [facility] 15:47:17 Gastroesop hageal reflux disease 860931775 Active 2020 Norman Mera, DO [address] [place] [address], [address], [facility] 16:08:24 Calculus of kidney and ureter 524219543 Active 2020 Norman Mera, DO [address] [place] [address], [address], [facility] 16:09:58 Problem Notes None recorded. Procedures Surgical History None recorded. Imaging Results Imaging Date Name Status LastModified by Organization Details LastModified Time 06/02/2023 US, retroperitoneum completed [facility] (Medical Records) [address] [place] [address], [id number], 06/05/2023 09:32:35 Procedure Notes None recorded. Medical Equipment None Reported. Allergies No known drug allergies Medications Name Sig Start Date Stop Date Status Note LastModified by Organization Details LastModified Time ibuprofen 800 mg tablet TAKE 1 TABLET BY MOUTH EVERY 8 HOURS NEEDED FOR PAIN 10/05 completed Not Available Not Available Not Available tamsulosin 0.4 mg capsule TAKE 1 CAPSULE BY MOUTH DAILY FOR 14 DAYS 10/05 completed Not Available Not Available Not Available pyridoxine (vitamin B6) 50 mg tablet TAKE 1 TABLET BY MOUTH DAILY active Not Available Not Available No t Available oxycodone 5 mg tablet TAKE 1 TABLET BY MOUTH EVERY 8 HOURS NEEDED FOR PAIN 10/05 completed Not Available Not Available Not Available Vitals Date Recorded Body height Body mass index (BMI) Body weight Heart rate Oxygen saturation Oxygen saturation in Arterial blood by Pulse oximetry Systolic blood pressure Diastolic blood pressure Provider Name and Address Organization Details Last Updated DateTime 1 177.8 cm 30.9 kg/m2 93987.1 6 g 77 /min 97 % 97 % 130 mm[Hg] 70 mm[Hg] Bruna Messer [facility] Internal [facility] 1 15:44:55 Date Recorded Body height Body mass index (BMI) Body weight Heart rate Oxygen saturation Oxygen saturation in Arterial blood by Pulse oximetry Systolic blood pressure Diastolic blood pressure Provider Name and Address Organization Details Last Updated DateTime 2 177.8 cm 30.2 kg/m2 21458.1 9 g 77 /min 98 % 98 % 126 mm[Hg] 70 mm[Hg] Norman Mera, DO [address] [place], [address] [place] [address] Internal [facility] 2 15:21:49 Date Recorded Body height Body mass index (BMI) Body weight Heart rate Oxygen saturation Oxygen saturation in Arterial blood by Pulse oximetry Systolic blood pressure Diastolic blood pressure Provider Name and Address Organization Details Last Updated DateTime 4 177.8 cm 29.3 kg/m2 94631.8 4 g 58 /min 97 % 97 % 142 mm[Hg] 78 mm[Hg] Bere Rodrigues [facility] 4 11:07:32 Social History Question Answer Notes LastModified by Organizat ion Details LastModified Time Tobacco Smoking Status Never Smoker Bruna Messer [facility] 10/05/2020 15:42:00 What Was The Date Of Your Most Recent Tobacco Screening? 06/04/2024 [email or web address] Information not available 06/04/2024 Do You Or Have You Ever Used Any Other Forms Of Tobacco Or Nicotine? No Information not available 05/25/2022 Sex: Unknown Functional Status None recorded. Mental Status None recorded. Family History Nothing Reported. Medical History No medical history recorded. Immunizations Vaccine Type Date Status Note Provider Nam e and Address Organization Details Recorded Time COVID-19, mRNA, LNP-S, PF, 100 mcg/0.5mL dose or 50 mcg/0.25mL dose 10/03/2020 completed Bruna garcia [facility] 10/05/2020 15:45:10 COVID-19, mRNA, LNP-S, PF, 100 mcg/0.5mL dose or 50 mcg/0.25mL dose 09/12/2020 completed Bruna garcia [facility] 10/05/2020 15:45:17 Past Encounters Encounter ID Performer Location Encounter Start Date Encounter Closed Date Diagnosis/Indication Diagnosis SNOMED-CT Code Diagnosis ICD10 Code [id number] SUE BURDICK [facility] [address] [address] 10/05/2020 15:22:40 10/06/2020 14:59:09 Basal cell carcinoma of nose 117395546 C44.311 Gastroesop hageal reflux disease 053163073 K21.9 Calculus o f kidney and ureter 511871812 N20.2 [id number] Norman Mera [address] [address] 08/11/2021 08:24:25 08/11/2021 12:07:16 Gastroesophageal reflux disease 547842833 K21.9 Calculus o f kidney and ureter 070459307 N20.2 Neoplasm of kidney 78009 0001 D49.519 Hyperlipid emia screening 036985676 Z13.220 [id number] Norman Mera [address] [place] [address] 05/25/2022 15:13:39 05/25/2022 16:08:54 Active or passive immunization 093295581 Z23 Adult [facility] th examination 214465015 Z00.00 Hepatitis C screening 41 9594909 Z11.59 Advance care planning 71 0378395 Z71.89 Screening for malignant neoplasm of colon 433878444 Z12.11 [id number] Norman Mera [address] [place] [address] 06/04/2024 10:57:42 06/04/2024 11:31:27 Adult health examination 032788082 Z00.00 Health Concerns Section Related Observation LastModified by Organization Detai ls LastModified Time None Recorded Concern Status LastModified by Organization Details LastModified Time None Recorded Advance Directives Directive None Recorded Payers Encounter Date Sequence Insurance Name Policy Number Policy Jasso Covered Member ID Jasso Member ID Guarantor Name 10/05/2020 1 [place] [facility] [place] [id number] Tram Terry [id number] Acosta Terry 08/11/2021 1 [place] [facility] [place] [place] (O) [id number] Tram Terry [id number] Acosta Terry 05/25/2022 1 [place] [employer] Acosta Lee Ulysses [id number] Acosta Ulysses 05/25/2022 2 [place] [id number] Acosta Ulysses [id number] Acosta Terry 06/04/2024 1 [place] [employer] Acosta Lee Ulysses [id number] Acosta Ulysses 06/04/2024 2 [place] [id number] Acosta Terry [id number] Acosta Stewart Notes Date Note Type Note Provider Name a nd Address Organization Details Recorded Time 1 text/html here for rechk and is doing well had renal stone last week and was nasty seen in ER and states eventually passed 2 days after attack has his covid relates he is otherwise feeling well relates having heartburn at night on occ b ut needs to take an occ prilosec also has a lesion on hsi left nasal ridge SUE BURDICK [address] [facility], [place], [address], [facility] 10/05/2020 16:33:56 2 text/html patient is evaluated via tele/video assessment per patient consent during current pandemichere for rechk and is doing to do wellstates he is feeling wellhas been on prilosec and is occ having issues with acidno cp no sobbowels okno bloodbladder is fair some bph sx has nocturia x 3 Norman Mera, DO [address] [place], [address], [facility] 08/11/2021 10:46:14 2 text/html Annual WellnessReported bypatient.Diet and Nutrition:healthy diet Fracture Risk:no history of fractures; no recent explained fracture; no sudden unexplained fractures; no previous musculoskeletal injuries Physical Activity:exercises on a regular basis; recent increase in physical activity; good physical condition Additional Lifestyle Factors:no tobacco use; no alcohol intake; stopped drinking alcohol Depression Risk:never feels sad, empty, or tearful; no loss of interest in activities; no significant changes in weight; no sleep disturbances or insomnia; no agitation; no loss of energy; no feelings of worthlessness or guilt; no thoughts of suicide; no history of depression; no history of mood disorders Hearing:no loss of hearing Vision:no vision problems The patient denies recent falls or recurrent falls. Denies instability, weakness, abnormal gait, or difficulties with movement. The patient wears correct, supportive shoes and is not otherwise severely visually impaired. The patient is full weight bearing and if using the assistance of a cane or walker feels supported and stable with the use of such devices. All medical conditions have been taken into account that may pose a risk for the patient for falls. Home naresh, carpets and/or rugs do not pose a challenge for the patient. The patient has been educated about the use of vitamin D supplementation for bone health and prevention of hypotensive episodes that may increase risk for fall. All question and concerns were answered to the patient's satisfaction. here for annualrelates doing okstates has been using the prilosec but not on a daily basis Norman Mera, DO [address] [place], [address], [facility] 05/25/2022 15:50:45 4 text/html Annual WellnessReported bypatient.Diet and Nutrition:healthy diet Fracture Risk:no history of fractures; no recent explained fracture; no sudden unexplained fractures; no previous musculoskeletal injuries Physical Activity:exercises on a regular basis; recent increase in physical activity; good physical condition Additional Lifestyle Factors:no tobacco use; no alcohol intake; stopped drinking alcohol Depression Risk:never feels sad, empty, or tearful; no loss of interest in activities; no significant changes in weight; no sleep disturbances or insomnia; no agitation; no loss of energy; no feelings of worthlessness or guilt; no thoughts of suicide; no history of depression; no history of mood disorders Hearing:no loss of hearing Vision:no vision problems here for cpe doing good no major malfunctions The patient denies recent falls or recurrent falls. Denies instability, weakness, abnormal gait, or difficulties with movement. The patient wears correct, supportive shoes and is not otherwise severely visually impaired. The patient is full weight bearing and if using the assistance of a cane or walker feels supported and stable with the use of such devices. All medical conditions have been taken into account that may pose a risk for the patient for falls. Home naresh, carpets and/or rugs do not pose a challenge for the patient. The patient has been educated about the use of vitamin D supplementation for bone health and prevention of hypotensive episodes that may increase risk for fall. All question and concerns were answered to the patient's satisfaction. relates [facility] has been using the prilosec but not on a daily basis Norman Mera, DO [address] [facility], [place], [address], [facility] 06/04/2024 11:34:22
--- OUTSIDE RECORDS SUMMARY | 2024-06-28 11:21 | XMS_ITS | Continuity of Care Document ---
Author Organization [facility], [facility] Address [address] [place] [address] [place] [address] Assessment No assessment recorded. Plan of Treatment Reminders Order Date Submit Date Provider Last Modified By Organization Details Last Modified Time Details Appointments None recorded . Lab CMP, serum or plasma [facility], [address] [place] [address], [id number], 4 11:38:18 CBC w/ auto diff [facility], [address] [place] [address], [id number], 4 12:55:50 PSA, serum or plasma [facility], [address] [place] [address], [id number], 4 13:26:01 lipid panel, blood [facility], [address] [place] [address], [id number], 4 13:24:29 Referral None recorded . Procedures None recorded . Surgeries None recorded . Imaging None recorded . Medication Orders None recorded . Patient TargetsNo targets recorded. Patient InstructionsNo instructions recorded. Reason for Referral None Reported. Problems Name Problem SNOMED Code Status Onset Date Resolution Date Notes Provider Name and Address Organization Details Recorded Time Low back pain 002805194 Active 2020 Norman Mera [address] [place] [address], [phone], [facility] 1 15:46:23 Polyp of colon 96535859 Active 2020 Norman Mera, DO [address] [place] [address], [phone], [facility] 1 15:46:33 Diverticul osis of sigmoid colon 993891053 Active 2020 Norman Mera, DO [address] [place] [address], [phone], [facility] 1 15:46:42 Internal hemorrhoid s 70884451 Active 2020 Norman Mera DO [address] [place] [address], [phone], [facility] 1 15:46:49 Cyst of kidney 899664419 Active 2020 Noramn Mera, DO [address] [place] [address], [phone], [facility] 1 15:47:00 Neoplasm of kidney 434242621 Active 2020 Norman Mera DO [address] [place] [address], [phone], [facility] 1 15:47:10 Malignant tumor of kidney 466183663 Active 2020 Norman Mera DO [address] [place] [address], [phone], [facility] 1 15:47:17 Gastroesop hageal reflux disease 544190076 Active 2020 Norman Mera DO [address] [place] [address], [phone], [facility] 1 16:08:24 Calculus of kidney and ureter 762314059 Active 2020 Norman Mera DO [address] [place] [address], [phone], [facility] 16:09:58 Problem Notes None recorded. Medical Equipment None Reported. [...] Updated DateTime 4 177.8 cm 29.3 kg/m2 70223.8 4 g 58 /min 97 % 97 % 142 mm[Hg] 78 mm[Hg] Bere Rodrigues [facility] 4 11:07:32 Social History Question Answer Notes LastModified by Organizat ion Details LastModified Time Tobacco Smoking Status Never Smoker [facility] 10/05[facility]2020 15:42:00 What Was The Date Of Your Most Recent Tobacco Screening? 06/04/2024 [email or web address] Information not available 06/04/2024 Do You Or [...] 50 mcg/0.25mL dose 10/03/2020 completed Bruna garcia [facility] 10/05/2020 15:45:10 COVID-19, mRNA, LNP-S, PF, 100 mcg/0.5mL dose or 50 mcg/0.25mL dose 09/12/2020 completed Bruna garcia [facility] 10/05/2020 15:45:17 Past Encounters Encounter ID Performer Location Encounter Start Date Encounter Closed Date Diagnosis/Indication Diagnosis SNOMED-CT Code Diagnosis ICD10 Code [id number] DO [facility] [address] [address] 06/04/2024 10:57:42 06/04/2024 11:31:27 Adult health examination 150460059 Z00.00 Health Concerns Section Related Observation LastModified by Organization Detai ls LastModified Time None Recorded Concern Status LastModified by Organization Details LastModified Time None Recorded Payers Encounter Date Sequence Insurance Name Policy Number Policy Jasso Covered Member ID Jasso Member ID Guarantor Name 06/04/2024 1 [place] [employer] Acosta Stewart [id number] Acosta Stewart 06/04/2024 2 [place] [id number] Acosta Santoson [id number] Acosta Stewart Notes Date Note Type Note Provider Name a nd Address Organization Details Recorded Time 4 text/html Annual WellnessReported bypatient.Diet and Nutrition:healthy [...] were answered to the patient's satisfaction. relates doing oks has been using the prilosec but not on a daily basis Norman Mera, [address], [place], [address], [facility] 06/04/2024 11:34:22
--- NOTE | 2024-06-28 11:25 | A.OFFVIS_ITS ---
Intake Visit Reasons: 1y/US Intake Note: Patient is present for 1y Follow Up/US Urology Medication:NONE Blood Thinner: None ALLERGIES: NONE Transportation Coordinator Required: No Allergies No Known Allergies [No Known Allergies*] Allergy (Verified 06/28/24 11:36) HPI Comments Details: Acosta is a pleasant male. He is a patient of Dr. Mera. 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 [place] Nephrolithiasis Ongoing nephrolithiasis Prior stone passage Imaging - 05/30 renal ultrasound with bilateral cysts up to 5 cm and bilateral small stones up to 3 mm - 06/30 KUB - small stone - 07/02 renal ultrasound multiple small stones remain 4 mm, multiple cysts Stone composition - 09/27 calcium oxalate monohydrate 80% Continued management B6 Renal cell carcinoma Status post cryoablation right side with renal cyst Recent imaging shows minimal change BPH Doing well from a urinary point of view No current therapy PSA - 08/30 2.4 PFSH Medical History BPH loc w urin obs/LUTS H/O nephrolithotomy with removal of calculi H/O renal calculi Malignant neoplasm of kidney Mild acid reflux Surgical History History of lithotripsy Social History Alcohol intake: current Alcohol intake frequency: holidays/special occasions only Review of Systems Const Denies chills and Denies fever(s) Card Reports no additional complaints and Denies syncope Resp Denies cough GI Denies abdominal pain and Denies heartburn Reports as per HPI and Denies change in libido Neuro Denies syncope Psych Denies change in libido Endo Denies change in libido Physical Exam Const General: cooperative, healthy appearing, comfortable and no acute distress Orientation/consciousness: patient oriented x3 HEENT Face and sinus: Yes normal facial exam Mouth: moist mucous membranes Neck Neck: Yes normal visual inspection, Yes full ROM and Yes trachea midline Chest Chest palpation & inspection: normal inspection of the chest Resp Effort & Inspection: normal respiratory effort, able to speak in complete sentences and no respiratory distress GI Inspection: Yes normal to inspection Back/Spine/Pelvis Cervical Spine: normal cervical lordosis Thoracic/Lumbar Spine: thoracic and lumbar spine normal to inspection Skin General skin exam: no rashes or lesions noted Neuro General: patient oriented x3, gait normal, tone normal and moves all extremities Extrem General: Yes normal to inspection and Yes capillary refill normal Results AMB Urinalysis, Automated UA Leukoctes 0 Bobby/uL Last Edit by ALEK Gutierrez on 06/28/24 11:37 UA Nitrite Negative Last Edit by ALEK Gutierrez on 06/28/24 11:37 UA Urobilinogen 0.2 mg/dL Last Edit by ALEK Gutierrez on 06/28/24 11:3 7 UA Protein 0 mg/dL Last Edit by ALEK Gutierrez on 06/28/24 11:37 UA pH 6.0 Last Edit by Jayesh Florez CCM on 06/28/24 11:37 UA Blood 0 Yonis/uL Last Edit by ALEK Gutierrez on 06/28/24 11:37 UA Specific Rome 1.020 Last Edit by Jayesh Florez CCM on 06/28/24 11: 37 UA Ketone Negative Last Edit by ALEK Gutierrez on 06/28/24 11:37 UA Bilirubin 0 mg/dL Last Edit by ALEK Gutierrez on 06/28/24 11:37 UA Glucose 0 mg/dL Last Edit by ALEK Gutierrez on 06/28/24 11:37 Results Reviewed Results Reviewed: Laboratory Last Values Urine pH (Auto) 6.0 06/28/24 11:37 Specific Rome (Auto) 1.020 06/28/24 11:37 Urine Protein (Auto) 0 mg/dL 06/28/24 11:37 Glucose (UA)(Auto) 0 mg/dL 06/28/24 11:37 Urine Ketones (Auto) Negative 06/28/24 11:37 Urine Blood (Auto) 0 Yonis/uL 06/28/24 11:37 Urine Nitrite (Auto) Negative 06/28/24 11:37 Urine Bilirubin (Auto) 0 mg/dL 06/28/24 11:37 Urine Urobilinogen (Auto) 0.2 mg/dL 06/28/24 11:37 Leukocyte Esterase (Auto) 0 Bobby/uL 06/28/24 11:37 Assessment & Plan Assessment & Plan (1) Nephrolithiasis: Code(s): N20.0 - Calculus of kidney Category: Medical (2) BPH loc w urin obs/LUTS: Code(s): N40.1 - Benign prostatic hyperplasia with lower urinary tract symptoms Category: Medical Plan 12m f/u Ultrasound Orders: Orders AMB Urinalysis Automated Today Z13.9 - Encounter for screening, unspecified US renal BI 12 Months N20.0 - Calculus of kidney Patient Instructions: Imaging studies, laboratory and physical exam results were discussed and reviewed in detail. No major barriers to patient understanding were identified. An opportunity to ask questions regarding the treatment plan was provided. All questions were answered. The patient expressed understanding and agreement with the above treatment plan. The patient is aware they should contact our office by phone for worsening of their current condition or the appearance of new urologic symptoms. Compliance is encouraged with any medications and followup testing that is ordered. It is a privilege to participate in the urologic care of your patient. If you h ave any questions or concerns regarding treatment for the above conditions, or other urologic issues, please do not hesitate to contact me. The office telephone contact is [phone]. This note is constructed using voice recognition software. While every effort has been made to ensure accuracy direct service worker errors may have been included. Yours sincerely, Dr Dao Schmitt MD, [facility] - Urology Providers of Expert, Compassionate Care for the Genitourinary System Coding Level of Care Code Est Pt Level 4 (06970) Diagnoses Nephrolithiasis N20.0 BPH loc w urin obs/LUTS N40.1
== END 2024-06-28 12:08 | disposition home or self-care (01) ==
PROVIDERS: PCP Internal Medicine; Visit Provider Urology
DX: N20.0 Calculus of kidney (principal); N40.1 Benign prostatic hyperplasia with lower urinary tract symptoms; Z13.9 Encounter for screening, unspecified
CPT/HCPCS: 99214

== ENCOUNTER → 2024-06-28 11:10 | Outpatient (BNVA) | payer MEDICARE, SELFPAY | PROVIDERS: PCP Internal Medicine; Visit Provider Urology | DX: N40.1 Benign prostatic hyperplasia with lower urinary tract symptoms (principal); N20.0 Calculus of kidney; Z85.528 Personal history of other malignant neoplasm of kidney | CPT/HCPCS: 81003; 99212 ==

== ENCOUNTER 2025-04-22 10:32 | Inpatient (IN) | payer MEDICARE, SELFPAY ==
[2025-04-22] VITALS (12 sets, daily range): BP systolic 131–179; BP diastolic 68–138; PULSE 49–80; RESP 11–18; TEMP 36.1–37.1; O2SAT 94–99; BMI 28.0
--- NOTE | ~2025-04-22 | CT_ITS ---
EXAMINATION: CT ABDOMEN AND PELVIS WITHOUT CONTRAST CLINICAL INFORMATION: Left flank pain, history of kidney stones COMPARISON: None available. TECHNIQUE: Multidetector volumetric imaging was performed from the superior aspect of the liver through the pubic symphysis. Sagittal and coronal reformatted images were obtained on the technologist's workstation. This CT examination was performed using dose optimization techniques as appropriate, variously including the following: *Automated exposure control *Adjustment of mA and/or kV according to patient size (this includes techniques or standardized protocols for targeted exams where dose is matched to indication/reason for exam; i.e. extremities or head) *Use of iterative reconstruction technique FINDINGS: LUNG BASES: In the posterior lateral right lower lobe there is a solid pulmonary nodule contacting pleura and measuring 5 x 6 mm, previously 4 x 7 mm, essentially unchanged. There is a stable 4 mm solid pulmonary nodule in the posterior left lower lobe. LIVER, GALLBLADDER, AND BILIARY TREE: There are 4 fluid attenuating lesions in liver likely representing simple hepatic cysts that were present but less conspicuous on the prior. The gallbladder is unremarkable with no evidence of radiopaque gallstones, gallbladder wall thickening, or obvious pericholecystic inflammatory changes. PANCREAS: Unremarkable. SPLEEN: Unremarkable. ADRENAL GLANDS: Unremarkable. KIDNEYS AND URETERS: Multiple simple renal cysts are again identified. The largest is an exophytic cyst extending laterally from the kidney and it measures 5.3 x 8.6 cm, previously 4.1 x 4.8 cm. Numerous stones are present in both kidneys, increased since the prior. 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 Stones in the distal left ureter and UPJ clear. There is mild perinephric fat stranding on the left. No right ureteral stones are seen. BLADDER: Unremarkable. GASTROINTESTINAL TRACT: There is a small sliding hiatal hernia involving stomach fundus. It appears to be either paraesophageal or combined sliding and paraesophageal. Pseudodiverticula are seen scattered from the colon is present in the sigmoid colon. ABDOMINAL WALL: Very small fat-containing umbilical hernia is unchanged. Fat in the proximal left spermatic cord could represent lipoma LYMPH NODES: Normal. VASCULAR: Mild multifocal atherosclerotic calcifications are evident. PELVIC VISCERA: Unremarkable. OSSEOUS STRUCTURES: Multilevel degenerative changes are seen in the thoracic spine and at L5-S1 CT/CT abdomen pelvis wo IV con IMPRESSION: 10 mm stone is present at the left ureteropelvic junction resulting in mild to moderate hydronephrosis. Numerous stones are present in both kidneys, slightly increased since the prior. 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 There is a small hiatal hernia similar to the prior. It is likely either a paraesophageal hernia or a mixed sliding and paraesophageal hernia. Stable pulmonary nodules in the bilateral lower lobes require no further follow-up. Colonic diverticulosis without evidence of infection. Fleischner guidelines were followed. Electronically signed by: Ronald Partida MD 04/22/2025 01:19 PM EDT RP
--- NOTE | ~2025-04-22 | FL_ITS ---
EXAMINATION: FL GUIDANCE ONLY HISTORY: LEFT CYSTO SPECIAL COMPARISON: Correlation is made with an unenhanced CT of the abdomen and pelvis dated 04/22/2025. TECHNIQUE: Fluoroscopy time: 0.1 minute. Cumulative Dose: 1.68 mGy. DAP: 0.459 Gycm2 Images: 2. FINDINGS: Fluoroscopic spot films of the left abdomen demonstrate placement of a nephroureteral stent. FL/FL guidance in OR IMPRESSION: Fluoroscopy during procedure. Please see procedure report for additional information. Electronically signed by: Torres Theodore MD 04/23/2025 07:23 AM EDT
--- NOTE | 2025-04-22 11:00 | ED_ITS ---
HPI - Abdominal Pain General Chief Complaint: Abdominal Pain Stated Complaint: l FLANK PAIN, VOMITING SINCE AM Time Seen by Provider: 04/22/25 10:58 Source: patient and RN notes reviewed Mode of arrival: ambulatory Limitations: no limitations History of Present Illness ED Provider: Reshma Montana PA-C HPI narrative: This is a 75-year-old male, with a history of recurrent kidney stones, who presents emergency department via EMS for evaluation of acute left flank pain, nausea, and vomiting. The patient reports waking up this morning, about 3 hours ago, with left sided flank pain radiating to the back, similar to previous kidney stone episodes. He contacted his primary care provider due to the intensity of the pain and his multiple kidney stones over the past 5 years. He was instructed to come into the office for evaluation and KUB. While driving to the appointment, he developed worsening nausea and vomiting, pulling over after vomiting multiple times. A police stenographer observed him on the side of the road and contacted EMS, who transported him to the ED for further evaluation. He reports 3 hour history of severe flank pain and has vomited 5 times this morning. Denies abdominal pain, diarrhea, constipation, chest pain, shortness of breath, or headache. Does note mild dizziness. He denies taking any daily medications and has no other known chronic medical conditions. No other complaints or concerns at this time. MD elicited complaint: flank pain Pertinent past history: kidney stones Onset (ago): hour(s) Pain Consistency: constant Location: L flank Severity: moderate Quality: aching Radiation: none Migration to: no migration Exacerbating factors: nothing Relieving factors: nothing Related Data Previous Rx's ?Medication ?Instructions ?Recorded naproxen 500 mg tablet 500 mg PO BID 14 days #28 ta bs 04/22/25 prednisone 20 mg tablet 20 mg PO DAILY 5 days #5 tab s 04/22/25 tamsulosin 0.4 mg capsule 0.4 mg PO BEDTIME 14 days #1 4 caps 04/22/25 Allergies Allergy/AdvReac Type Severity Reaction Status Date / Time No Known Allergies (No Known Allergy Verified 04/22/25 10:57 Allergies*) Review of Systems Review of Systems Yes all other systems are reviewed and are negative Constitutional: Reports as per [facility] Past Medical History Attestation statement: The following information was validated with the patient. Medical History Mild acid reflux Malignant neoplasm of kidney BPH loc w urin obs/LUTS H/O nephrolithotomy with removal of calculi H/O renal calculi Surgical History History of lithotripsy Social History Social History Alcohol intake: current Alcohol intake frequency: holidays/special occasions only Smoked in Last 30 Days: No Use of substances other than those prescribed or required for medical reasons: No Advance Directives: No Advance Directives Information Provided: Yes Do you have a plan to hurt others: No Plan Physical Exam ED Vital Signs: Vital Signs - 24 hr 04/22/25 11:21 Temperature 98.7 F Pulse Rate 80 Respiratory Rate 16 Blood Pressure 168/70 H Pulse Oximetry 99 Oxygen Delivery Method Room Air BMI result Body Mass Index 28.0 Const General: acute distress Orientation/consciousness: patient oriented x3 Limitations: no limitations HENMT Head: Yes normal to inspection, Yes normocephalic and Yes atraumatic Ears: hearing grossly normal bilaterally General nose exam: Normal external nose present Face and sinus: Yes normal facial exam Mouth: Normal oral and palatal mucosa present, oropharynx normal and moist mucous membranes Throat: Yes posterior oropharynx normal Eyes General: appearance normal, both eyes and all related structures Eyelids: Yes eyelids normal Conjunctivae: conjunctivae normal Sclerae: sclerae normal Pupils: Equal, round and reactive pupils present EOM: EOMs intact bilaterally Neck Neck: Yes normal visual inspection, Yes full ROM and Yes no lymphadenopathy Lymphatic: no lymphadenopathy noted Chest Chest palpation & inspection: normal inspection of the chest Resp Effort & Inspection: normal respiratory effort and able to speak in complete sentences Auscultation: clear to auscultation bilaterally, no crackles, no rales, no rhonchi and no wheezes Cardio Rate: regular rate Rhythm: regular rhythm Heart sounds: S1 normal heart sound present and S2 normal heart sound present GI Other: Patient with tenderness palpation in the left flank, no rebound or guarding. Inspection: Yes normal to inspection Palpation (GI): Guarding due to palpation present (GI) Skin General skin exam: no rashes or lesions noted Trauma: no lacerations or abrasions Wounds: no wounds Neuro General: patient oriented x3 Cranial nerves: Yes Equal, round and reactive pupils present Extrem General: Yes normal to inspection Right upper extremity: normal to inspection Left upper extremity: normal to inspection Right lower extremity: normal to inspection Left lower extremity: normal to inspection Medical Decision Making Medical Decision Making MDM Narrative: 75 year old male with a history of recurrent nephrolithiasis presents with acute onset left flank pain associated with nausea and vomiting. Most likely diagnosis is renal colic secondary to nephrolithiasis, given the characteristic flank pain, associated vomiting, and history of multiple kidney stones over the past 5 years. Pyelonephritis is considered due to nausea and flank pain but less likely as patient is afebrile and without urinary frequency or dysuria. Musculoskeletal strain considered but less likely given severity and radiating nature of pain. Abdominal aortic aneurysm considered due to patient age but less likely as pain is localized to left flank and there are no hemodynamic abnormalities. Diverticulitis or other intra-abdominal pathology also considered but less likely in absence of abdominal tenderness or peritoneal signs. Plan for urinalysis, CBC, BMP, magnesium, troponin, liver panel, and CT abdomen/pelvis. Administer analgesics and antiemetics for symptomatic relief. 12:16 PM 04/22/2025 (Reshma Montana PA-C): Patient's symptoms significantly improved after receiving Toradol and morphine. CT abdomen and pelvis without contrast to be performed for further evaluation. 2:05 PM 04/22/2025 (Reshma Montana PA-C): CT abdomen and pelvis revealing a 10 millimeter stone present at the left UPJ resulting in [id number] hydronephrosis, patient did require 2nd dose of morphine secondary to resumption of pain. Reached out to Dr. Schmitt, patient's urologist for further management and recommendations. We will continue to closely monitor. Labs returned, he has no leukocytosis, stable H&H, chemistry revealing no significant electrolyte derangement. Creatinine and BUN around his baseline. 2:31 PM 04/22/2025 (Reshma Montana PA-C): Discussed case with Dr. Schmitt, recommending admission, will attempt to add onto the OR for lithotripsy and stent placement for this evening. Discussed case with hospitalist, transfer of care initiated. Differential Diagnosis Differential Diagnoses: The differential diagnosis associated with the presentation includes See above Admission/Observation Consideration of admission/observation: Escalation of care including admission/observation considered Consult Healthcare Provider Management of the patient was discussed with: Career Discovery Teacher Dr. Schmitt, urology Lab Data [facility] Lab Attestation statement: I reviewed the patient's lab results. See MDM 04/22/25 11:40 04/22/25 11:40 Labs: Lab Results 04/22/25 Range/Units 11:40 WBC 8.6 (4.8-10.8) X10*3/uL RBC 5.06 (4.60-5.80) X10*6/uL Hgb 13.4 L (14.0-18.0) g/dl Hct 41.8 L (42.0-52.0) % MCV 82.6 (80.0-98.0) fL MCH 26.5 L (27.0-33.0) pg MCHC 32.1 (31.0-36.0) g/dl RDW 13.2 (11.0-16.0) % Plt Count 186 (160-400) X10*3/uL MPV 11.3 (9.4-12.4) fL Immature Gran % (Auto) 0.3 (0.0-0.4) % Neut % (Auto) 84.4 H (45-73) % Lymph % (Auto) 10.1 L (20-40) % Clark % (Auto) 4.2 (2-11) % Eos % (Auto) 0.2 (0-4) % Baso % (Auto) 0.8 (0-2) % Lymph # (Auto) 0.9 L (1.2-4.9) X10*3/uL Clark # (Auto) 0.4 (0.1-1.2) X10*3/uL Eos # (Auto) 0.0 (0.0-0.4) X10*3/uL Baso # (Auto) 0.1 (0.0-0.2) X10*3/uL Abs Immat Gran (auto) 0.03 (0.00-0.03) X10*3/uL Absolute Neuts (auto) 7.3 (2.0-8.3) x10*3/uL Absolute Nucleated RBC 0.000 (0.0-0.012) X10*3/uL Nucleated RBC % (auto) 0.0 (0.0-0.2) /100WBC Sodium 142 (135-145) mmol/L Potassium 4.1 (3.3-5.1) mmol/L Chloride 111 H (96-108) mmol/L Carbon Dioxide 23 (22-29) mmol/L Anion Gap 12 (12-20) BUN 19 H (9-16) mg/dL Creatinine 1.20 (0.5-1.4) mg/dL Estim Creat Clear Calc 62.3 Estimated GFR 59 Random Glucose 159 H (60-115) mg/dL Calcium 9.0 (8.4-10.2) mg/dL Magnesium 2.0 (1.6-2.6) mg/dL Total Bilirubin 0.5 (0.0-1.0) mg/dL Direct Bilirubin 0.2 (0.0-0.5) mg/dL AST 29 (5-37) U/L ALT 28 (0-40) U/L Alkaline Phosphatase 52 (39-117) U/L Troponin I High Sens 4.2 (<3.5-35.0) ng/L Total Protein 6.7 (6.5-8.0) g/dL Albumin 4.3 (3.5-5.0) g/dL Independent Interpretation I performed an independent interpretation of an: EKG Interpretation: EKG normal sinus bradycardic at 56 beats per minute, RI interval 188, QT QTC 476/459, no STEMI. Radiology Impression Discussion of test interpretation with radiology: I have reviewed the radiologist's reading. Radiologist Impression: FINDINGS: LUNG BASES: In the posterior lateral right lower lobe there is a solid pulmonary nodule contacting pleura and measuring 5 x 6 mm, previously 4 x 7 mm, essentially unchanged. There is a stable 4 mm solid pulmonary nodule in the posterior left lower lobe. LIVER, GALLBLADDER, AND BILIARY TREE: There are 4 fluid attenuating lesions in liver likely representing simple hepatic cysts that were present but less conspicuous on the prior. The gallbladder is unremarkable with no evidence of radiopaque gallstones, gallbladder wall thickening, or obvious pericholecystic inflammatory changes. PANCREAS: Unremarkable. SPLEEN: Unremarkable. ADRENAL GLANDS: Unremarkable. KIDNEYS AND URETERS: Multiple simple renal cysts are again identified. The largest is an exophytic cyst extending laterally from the kidney and it measures 5.3 x 8.6 cm, previously 4.1 x 4.8 cm. Numerous stones are present in both kidneys, increased since the prior. 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 Stones in the distal left ureter and UPJ clear. There is mild perinephric fat stranding on the left. No right ureteral stones are seen. BLADDER: Unremarkable. GASTROINTESTINAL TRACT: There is a small sliding hiatal hernia involving stomach fundus. It appears to be either paraesophageal or combined sliding and paraesophageal. Pseudodiverticula are seen scattered from the colon is present in the sigmoid colon. ABDOMINAL WALL: Very small fat-containing umbilical hernia is unchanged. Fat in the proximal left spermatic cord could represent lipoma LYMPH NODES: Normal. VASCULAR: Mild multifocal atherosclerotic calcifications are evident. PELVIC VISCERA: Unremarkable. OSSEOUS STRUCTURES: Multilevel degenerative changes are seen in the thoracic spine and at L5-S1 CT/CT abdomen pelvis wo IV con IMPRESSION: 10 mm stone is present at the left ureteropelvic junction resulting in mild to moderate hydronephrosis. Numerous stones are present in both kidneys, slightly increased since the prior. 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 There is a small hiatal hernia similar to the prior. It is likely either a paraesophageal hernia or a mixed sliding and paraesophageal hernia. Stable pulmonary nodules in the bilateral lower lobes require no further follow-up. Colonic diverticulosis without evidence of infection. Fleischner guidelines were followed. Electronically signed by: Ronald Partida MD 04/22/2025 01:19 PM EDT Dictated By: Ronald Partida MD Medications Administered Discontinued Medications Generic Name Dose Route Start Last Admin Trade Name Freq PRN Reason Stop Dose Admin Sodium Chloride 1,000 mls @ 999 mls/hr 04/22/25 12:18 04/22/25 12:23 Ns IV 04/22/25 13:18 999 mls/hr .Q1H1M ONE Administration Ketorolac Tromethamine 15 mg 04/22/25 11:20 04/22/25 11:26 Ketorolac Tromethamine 15 Mg/Ml Vial IVPUSH 04/22/25 11:21 15 mg ONCE ONE Administration Morphine Sulfate 4 mg 04/22/25 11:17 04/22/25 11:26 Morphine Sulfate 4 Mg/Ml Cartridge IVPUSH 04/22/25 11:18 4 mg ONCE ONE Administration Protocol Morphine Sulfate 4 mg 04/22/25 13:32 04/22/25 13:42 Morphine Sulfate 4 Mg/Ml Cartridge IVPUSH 04/22/25 13:33 4 mg ONCE ONE Administration Protocol Ondansetron HCl 4 mg 04/22/25 11:20 04/22/25 11:26 Ondansetron Hcl 4 Mg/2 Ml Vial IVPUSH 04/22/25 11:21 4 mg ONCE ONE Administration Critical Care Time Critical Care Time Critical Care Time: Yes Total Critical Care Time: 40 Attestation: I have personally provided critical care time exclusive of time spent on separately billable procedures. Time includes review of lab data, radiology results, discussion with consultants, and monitoring for potential decompensation. Intervention performed as documented. Discharge Plan Discharge Clinical Impression: Nephrolithiasis Patient Disposition: Admitted As Inpatient Print Language: Pakistani
--- NOTE | 2025-04-22 11:17 | ECG_ITS ---
Test Reason : EPIGASTRIC PAIN Blood Pressure : */* mmHG Vent. Rate : 56 BPM Atrial Rate : 56 BPM P-R Int : 188 ms QRS Dur : 102 ms QT Int : 476 ms P-R-T Axes : 13 -21 12 degrees QTcB Int : 459 ms Sinus bradycardia Nonspecific T wave changes Abmormal ECG When compared with ECG of 18-May-2005 08:04, Nonspecific T wave changes inferiorly Referred By: Reshma Montana Electronically Signed By: Bobo Fonseca
--- NOTE | 2025-04-22 11:32 | PC.NURSE ---
patient medicated per order
[2025-04-22 11:45] LABS: MANUAL DIFF FLAG NO
[2025-04-22 11:47] LABS: Hematocrit 41.8 % (42.0-52.0); Hemoglobin 13.4 g/dl (14.0-18.0); Imm Gran Abs Auto 0.03 X10*3/uL (0.00-0.03); Imm Gran Pct Auto 0.3 % (0.0-0.4); Lymphocytes Absolute Auto 0.9 X10*3/uL (1.2-4.9); Mean Corpuscular HGB Conc 32.1 g/dl (31.0-36.0); Mean Corpuscular Hemoglobin 26.5 pg (27.0-33.0); Mean Corpuscular Volume 82.6 fL (80.0-98.0); NRBC Abs Auto 0.000 X10*3/uL (0.0-0.012); NRBC Pct Auto 0.0 /100WBC (0.0-0.2); Platelet Count 186 X10*3/uL (160-400); Red Blood Count 5.06 X10*6/uL (4.60-5.80); White Blood Count 8.6 X10*3/uL (4.8-10.8)
[2025-04-22 12:02] LABS: Alanine Aminotransferase 28 U/L (0-40); Albumin Level 4.3 g/dL (3.5-5.0); Alkaline Phosphatase 52 U/L (39-117); Anion Gap 12 (12-20); Aspartate Amino Transferase 29 U/L (5-37); Blood Urea Nitrogen 19 mg/dL (9-16); Calcium 9.0 mg/dL (8.4-10.2); Carbon Dioxide 23 mmol/L (22-29); Chloride 111 mmol/L (96-108); Creatinine Clr Calc Pharmacy 62.3; Estimated Glomerular Filt Rate 59; Magnesium 2.0 mg/dL (1.6-2.6); Potassium 4.1 mmol/L (3.3-5.1); Sodium 142 mmol/L (135-145); Total Protein 6.7 g/dL (6.5-8.0)
[2025-04-22 12:06] LABS: Troponin-I High Sensitivity 4.2 ng/L (<3.5-35.0)
--- NOTE | 2025-04-22 12:28 | PC.NURSE ---
patient a&ox3, iv previously inserted by ems, labs drawn, ekg performed by tech, ivf hung per order, call beck within reach, plan of care ongoing
--- OUTSIDE RECORDS SUMMARY | 2025-04-22 13:34 | XMS_ITS | Clinical Summary ---
Author Organization [facility] Address [address] [place] [address] [place] [id number] Phone Care Team Providers Care Psychiatric Assistant Name Role Phone Norman Mera DO Primary Care Provider [phone] Social History Tobacco Use Types Packs/Day Years Used Date Smoking Tobacco: Never Assessed Education Answer Date Recorded Are you interested in more education? Not on humberto e 06/18/2024 Are you concerned about learning? Not on file 06/18/2024 No 06/18/2024 No 06/18/2024 Digital Access Answer Date Recorded No 06/18/2024 No 06/18/2024 Reliable internet access at home? Not on file 06/18/2024 Device with a working camera? Not on file Sex and Gender Information Value Date Recorded Sex Assigned at Not on file Legal Sex Male 10:01 PM EDT Gender Identity Not on file Sexual Orientation Not on file Plan of Treatment Not on file Medical Devices Not on file Insurance MEDICARE PART A & B [employer] MED[employer] SUPPLEMENT MEDICARE PART A & B [employer] MED[employer] SUPPLEMENT MEDICARE PART A & B [employer] MED[employer] SUPPLEMENT MEDICARE PART A & B [employer] MEDEX SUPPLEMENT MEDICARE PART A & B [employer] MEDEX SUPPLEMENT MEDICARE PART A & B [employer] MEDEX SUPPLEMENT Care Teams Psychiatric Assistant Relationship Specialty Start Date End Date Norman Mera DO [email or web address] PCP - General Internal Medicine 06/18/24 Additional Source Comments The information contained in this document represents components of the legal health record. It is not the complete legal health record.[facility]
--- NOTE | 2025-04-22 13:44 | PC.NURSE ---
pt medicated for 9/10 flank pain, pts ivf continue to run slowly- pt reminded to keep arm straight to allow them to flow faster
--- NOTE | 2025-04-22 14:28 | HO.ANESPROP2 ---
Documented by User: Magaly Martinez NP 04/22/25 14:28 HPI - Anesthesia Eval Consult details Narrative: 75 yr old male for cystoscopy, ureteroroscopy, retro, laser left PMFSH Active Problems Active Problems: All Active Problems Nephrolithiasis (Acute) BPH loc w urin obs/LUTS (Acute) Malignant neoplasm of kidney (Acute) Past Medical History Medical History Mild acid reflux Malignant neoplasm of kidney BPH loc w urin obs/LUTS H/O nephrolithotomy with removal of calculi H/O renal calculi Surgical History Surgical History Hx of tonsillectomy History of lithotripsy Social History Social History Alcohol intake: current Alcohol intake frequency: holidays/special occasions only Patient Tobacco Use Status: Former Tobacco user Smoked in Last 30 Days: No Use of substances other than those prescribed or required for medical reasons: No Are you DNR?: No Advance Directives: No Advance Directives Information Provided: Yes Do you have a plan to hurt others: No Plan Poor oral hygiene: No Meds Allergies Allergy/AdvReac Type Severity Reaction Status Date / Time No Known Allergies (No Known Allergy Verified 04/22/25 10:57 Allergies*) Active Medications: Current Medications Levofloxacin (Levaquin) 500 mg in 100 mls @ 100 mls/hr IV PREOP ONE Stop: 04/22/25 15:18 Acetaminophen (Ofirmev) 1,000 mg in 100 mls @ 400 mls/hr IV PREOP ONE Stop: 04/22/25 14:33 Exam Height,Weight and Vital Signs: Height 5 ft 11 in Weight 91.1 kg Last Vital Signs Temp 98.7 F 04/22/25 11:21 Pulse 80 04/22/25 11:21 Resp 16 04/22/25 11:21 BP 168/70 H 04/22/25 11:21 Pulse Ox 99 04/22/25 11:21 O2 Del Method Room Air 04/22/25 11:21 Pertinent Lab Results Pertinent Lab Results: Laboratory Tests 04/22/25 11:40 WBC 8.6 RBC 5.06 Hgb 13.4 L Hct 41.8 L MCV 82.6 MCH 26.5 L MCHC 32.1 RDW 13.2 Plt Count 186 MPV 11.3 Immature Gran % (Auto) 0.3 Neut % (Auto) 84.4 H Lymph % (Auto) 10.1 L [place] % (Auto) 4.2 Eos % (Auto) 0.2 Baso % (Auto) 0.8 Lymph # (Auto) 0.9 L [place] # (Auto) 0.4 Eos # (Auto) 0.0 Baso # (Auto) 0.1 Abs Immat Gran (auto) 0.03 Absolute Neuts (auto) 7.3 Absolute Nucleated RBC 0.000 Nucleated RBC % (auto) 0.0 Sodium 142 Potassium 4.1 Chloride 111 H Carbon Dioxide 23 Anion Gap 12 BUN 19 H Creatinine 1.20 Estim Creat Clear Calc 62.3 Estimated GFR 59 Random Glucose 159 H Calcium 9.0 Magnesium 2.0 Total Bilirubin 0.5 Direct Bilirubin 0.2 AST 29 ALT 28 Alkaline Phosphatase 52 Troponin I High Sens 4.2 Total Protein 6.7 Albumin 4.3 Narrative Narrative: EKG 04/22/25 Vent. Rate : 56 BPM Atrial Rate : 56 BPM P-R Int : 188 ms QRS Dur : 102 ms QT Int : 476 ms P-R-T Axes : 13 -21 12 degrees QTcB Int : 459 ms Sinus bradycardia Otherwise normal ECG When compared with ECG of 18-May-2005 08:04, Questionable change in QRS axis Documented by User: Chayito Ledbetter MD 04/22/25 16:03 PMFSH Past Medical History Medical History Mild acid reflux Malignant neoplasm of kidney BPH loc w urin obs/LUTS H/O nephrolithotomy with removal of calculi H/O renal calculi Family History Family history of problems with anesthesia: No Surgical History Surgical History Hx of tonsillectomy History of lithotripsy History of Problems with Anesthesia: No Social History Social History Alcohol intake: current Alcohol intake frequency: holidays/special occasions only Patient Tobacco Use Status: Former Tobacco user Smoked in Last 30 Days: No Use of substances other than those prescribed or required for medical reasons: No Are you DNR?: No Advance Directives: No Advance Directives Information Provided: Yes Do you have a plan to hurt others: No Plan Poor oral hygiene: No Meds Allergies Allergy/AdvReac Type Severity Reaction Status Date / Time No Known Allergies (No Known Allergy Verified 04/22/25 10:57 Allergies*) Exam Airway Mallampati Class: II TM Dist: >3cm Neck ROM: Limited Heart: rrr Lungs: cta Assessment and Plan Assessment Anesthesia Assessment: Anesthesia Plan Discussed and Chart Reviewed Final Anesthetic Review Family History of Problems with Anesthesia: No History of Problems with Anesthesia: No NPO: Yes (6 hrs ago ate a small piece of muffin but threw ) ASA Class: III Final Preanesthetic Review: No Changes in Pt Med Stat, Meds/Allgs Chart Reviewed, Consent Obtained/Reviewed and Anes Risks/Benef Reviewed Patient Risk: Intermediate Procedure Risk: Low Anesthetic Plan Anesthetic Plan: GA Disposition: Standard PACU
--- NOTE | 2025-04-22 14:33 | P.HPHOSP_ITS ---
History of Present Illness Date of Service: 04/22/25 Chief Complaint: Abdominal pain 75-year-old with acute left flank pain, nausea and vomiting. Apparently he woke up this morning with left flank pain radiating to his back similar to previous episodes of kidney stones that he has had. He called his primary care provider and he was instructed to go to the office for further evaluation. Unfortunately while EN route he developed worsening nausea and vomiting and a special police saw him on the side of the road and contacted EMS who transported the patient to the emergency department. He denied any fever, chills, recent illness, sick contacts. Abdominal pelvic CT showing 10 mm stone present in the left ureteropelvic junction resulting in [id number] hydronephrosis with numerous stones present in both kidneys. Patient was given multiple doses of IV morphine. Acetaminophen and Toradol as well as 1 L of IV fluid. No fever leukocytosis. Elevated blood pressure likely secondary to pain. Plan will be to admit patient for management of acute hydronephrosis with obstructing stone. Review of Systems 2 Review of Systems: Denies any recent fever chills or decrease in appetite respiratory denies any shortness of breath or cough cardiovascular denied chest pain gastrointestinal see HPI genitourinary denies any dysuria frequency or hematuria musculoskeletal denies any joint pain or swelling neuropsych denies any weakness or seizures all other systems reviewed are negative [facility] Medical History Mild acid reflux Malignant neoplasm of kidney BPH loc w urin obs/LUTS H/O nephrolithotomy with removal of calculi H/O renal calculi Surgical History (Updated 04/22/25 @ 14:58 by Jacki Fay RN) Hx of tonsillectomy History of lithotripsy Social History Alcohol intake: current Alcohol intake frequency: holidays/special occasions only Patient Tobacco Use Status: Former Tobacco user Smoked in Last 30 Days: No Use of substances other than those prescribed or required for medical reasons: No Are you DNR?: No Advance Directives: No Advance Directives Information Provided: Yes Do you have a plan to hurt others: No Plan Poor oral hygiene: No Meds Allergies Allergy/AdvReac Type Severity Reaction Status Date / Time No Known Allergies (No Known Allergy Verified 04/22/25 10:57 Allergies*) Active Medications: Current Medications Acetaminophen (Acetaminophen 325 Mg Tablet) 650 mg PO Q6H PRN PRN Reason: Pain, Mild 1-3,fever,headache Calcium Carbonate (Calcium Carbonate 750 Mg Tab.Chew) 750 mg PO Q4H PRN PRN Reason: Heartburn Levofloxacin (Levaquin) 500 mg in 100 mls @ 100 mls/hr IV PREOP ONE Stop: 04/22/25 15:18 Lactated Ringer's (Lr) 1,000 mls @ 100 mls/hr IVCONT .Q10H KERI Magnesium Hydroxide (Milk Of Magnesia 30 Ml Oral.Susp) 30 ml PO DAILY PRN PRN Reason: Constipation Melatonin (Melatonin 3 Mg Tablet) 6 mg PO BEDTIME PRN PRN Reason: Insomnia Morphine Sulfate (Morphine Sulfate 2 Mg/Ml Cartridge) 2 mg IVPUSH Q3H PRN; Protocol PRN Reason: Pain, Severe (Pain Scale 7-10) Ondansetron HCl (Ondansetron Hcl 4 Mg/2 Ml Vial) 4 mg IVPUSH Q8H PRN PRN Reason: Nausea and Vomiting Sodium Chloride (0.9 % Sodium Chloride Flush 3 Ml Syringe) 3 ml IVFLUSH QSHIFT [facility] Physical Exam 2 Vital Signs and Narrative: Vital Signs: Last Vital Signs Temp 98.7 F 04/22/25 11:21 Pulse 80 04/22/25 11:21 Resp 16 04/22/25 11:21 BP 168/70 H 04/22/25 11:21 Pulse Ox 99 04/22/25 11:21 O2 Del Method Room Air 04/22/25 11:21 BMI result Body Mass Index 28.0 Appearing in no acute distress head is normocephalic atraumatic eyes pupils are PERRLA sclera is anicteric mouth throat mucous membranes are intact and moist neck is supple no lymphadenopathy, no JVD noted lung sounds are clear to auscultation heart regular rate rhythm, clear S1, S2 positive bowel sounds, abdomen is soft, nontender neuro patient is alert x3, no focal deficits Results Labs 04/22/25 11:40 04/22/25 11:40 Labs: Laboratory Results - last 24 hr 04/22/25 11:40 MCV 82.6 MCH 26.5 L MCHC 32.1 RDW 13.2 Plt Count 186 MPV 11.3 Immature Gran % (Auto) 0.3 Neut % (Auto) 84.4 H Lymph % (Auto) 10.1 L [place] % (Auto) 4.2 Eos % (Auto) 0.2 Baso % (Auto) 0.8 Lymph # (Auto) 0.9 L [place] # (Auto) 0.4 Eos # (Auto) 0.0 Baso # (Auto) 0.1 Abs Immat Gran (auto) 0.03 Absolute Neuts (auto) 7.3 Absolute Nucleated RBC 0.000 Nucleated RBC % (auto) 0.0 Anion Gap 12 Estim Creat Clear Calc 62.3 Estimated GFR 59 Random Glucose 159 H Calcium 9.0 Magnesium 2.0 Total Bilirubin 0.5 Direct Bilirubin 0.2 AST 29 ALT 28 Alkaline Phosphatase 52 Troponin I High Sens 4.2 Total Protein 6.7 Albumin 4.3 Imaging Radiologist's Impressions: Impressions Abdomen/Pelvis CT 04/22/25 12:41 IMPRESSION: 10 mm stone is present at the left ureteropelvic junction resulting in mild to moderate hydronephrosis. Numerous stones are present in both kidneys, slightly increased since the prior. 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 There is a small hiatal hernia similar to the prior. It is likely either a paraesophageal hernia or a mixed sliding and paraesophageal hernia. Stable pulmonary nodules in the bilateral lower lobes require no further follow-up. Colonic diverticulosis without evidence of infection. Fleischner guidelines were followed. Electronically signed by: Ronald Partida MD 04/22/2025 01:19 PM EDT Assessment and Plan (1) Nephrolithiasis: Status: Acute Plan 75-year-old man with a history of renal calculi presents again with left flank pain, nausea and vomiting found to have [id number] hydronephrosis Hydronephrosis with obstructive stone Urology consultation> plan for OR today Pain management Keep NPO IV fluids Normocytic anemia Stable H&H no need for blood transfusion. Elevated blood pressure readings Likely secondary to pain Monitor DVT prophylaxis with pneumatic compression boots in light of upcoming procedure Full code Quality Stroke Does the patient have a stroke diagnosis?: No VTE Prior VTE?: No VTE Risk Level:: Medical - moderate - high VTE Device Contraindication: N/A - Device Ordered VTE Drug Contraindication: Treatment Not Indicated
--- NOTE | 2025-04-22 14:45 | PC.NURSE ---
pt picked up by OR
--- NOTE | 2025-04-22 14:55 | PC.NURSE ---
20G LEFT AC. INTACT. NO LEAKING. ASYMPTOMATIC
--- NOTE | 2025-04-22 16:19 | PM.HPGS ---
History of Present Illness History of Present Illness Date of Service: 04/22/25 Chief complaint: hydronephrosis Narrative: Acosta Stewart is a 75 year old male Presented through emergency room this morning Report 3-0 history of left-sided flank pain radiating to the back. Similar to prior kidney stone episodes. Contacted urology office and instructed to attend emergency department. Developed worsening nausea with vomiting. Was observed on the side of the road by police communications operator who contacted EMS and he was brought to hospital. Denies prior abdominal pain, hematuria, chest pain. Radiation to left flank Pain to 8/10 No exacerbating or relieving factor Laboratory evaluation at presentation creatinine 1.2, WBC 8.6 UA negative Imaging - CT Numerous stones are present in both kidneys, increased since the prior. 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 Recommend intervention with ureteroscopy and laser lithotripsy Review of Systems Constitutional: Constitutional: Reports as per HPI and Reports no additional constitutional complaints Cardiovascular: Cardiovascular: Reports as per HPI and Reports no additional cardiovascular complaints Respiratory: Respiratory: Reports as per HPI and Reports no additional respiratory complaints Gastrointestinal: Gastrointestinal: Reports as per HPI and Reports no additional gastrointestinal complaints Genitourinary: Genitourinary: Reports as per HPI Musculoskeletal: Musculoskeletal: Reports no additional musculoskeletal complaints and Reports as per HPI Neurologic: Reports system reviewed and no additional complaints, except as documented and Reports as per HPI PMFSH Past Medical History Medical History Mild acid reflux Malignant neoplasm of kidney BPH loc w urin obs/LUTS H/O nephrolithotomy with removal of calculi H/O renal calculi Surgical History Surgical History Hx of tonsillectomy History of lithotripsy Social History Social History Alcohol intake: current Alcohol intake frequency: holidays/special occasions only Patient Tobacco Use Status: Former Tobacco user Smoked in Last 30 Days: No Use of substances other than those prescribed or required for medical reasons: No Are you DNR?: No Advance Directives: No Advance Directives Information Provided: Yes Do you have a plan to hurt others: No Plan Poor oral hygiene: No Meds Allergies Allergy/AdvReac Type Severity Reaction Status Date / Time No Known Allergies (No Known Allergy Verified 04/22/25 10:57 Allergies*) Active Medications: Current Medications Acetaminophen (Acetaminophen 325 Mg Tablet) 650 mg PO Q6H PRN PRN Reason: Pain, Mild 1-3,fever,headache Calcium Carbonate (Calcium Carbonate 750 Mg Tab.Chew) 750 mg PO Q4H PRN PRN Reason: Heartburn Fentanyl (Fentanyl Citrate/Pf 100 Mcg/2 Ml Vial) 25 mcg IVPUSH Q5M PRN PRN Reason: Pain, Moderate to Severe (Pain Scale 4-10) Stop: 04/22/25 22:03 Lactated Ringer's (Lr) 1,000 mls @ 100 mls/hr IVCONT .Q10H KERI Magnesium Hydroxide (Milk Of Magnesia 30 Ml Oral.Susp) 30 ml PO DAILY PRN PRN Reason: Constipation Melatonin (Melatonin 3 Mg Tablet) 6 mg PO BEDTIME PRN PRN Reason: Insomnia Morphine Sulfate (Morphine Sulfate 2 Mg/Ml Cartridge) 2 mg IVPUSH Q3H PRN; Protocol PRN Reason: Pain, Severe (Pain Scale 7-10) Naloxone HCl (Naloxone Hcl 0.4 Mg/Ml Vial) 0.04 mg IVPUSH Q5M PRN PRN Reason: Excessive sedation or RR < 8 Ondansetron HCl (Ondansetron Hcl 4 Mg/2 Ml Vial) 4 mg IVPUSH Q8H PRN PRN Reason: Nausea and Vomiting Ondansetron HCl (Ondansetron Hcl 4 Mg/2 Ml Vial) 4 mg IVPUSH ONCE PRN PRN Reason: Nausea and Vomiting Stop: 04/22/25 22:04 Sodium Chloride (0.9 % Sodium Chloride Flush 3 Ml Syringe) 3 ml IVFLUSH QSHIFT [facility]ERI Physical Exam Vital Signs: Vital Signs: Last Vital Signs Temp 96.9 F 04/22/25 14:51 Pulse 57 04/22/25 14:55 Resp 16 04/22/25 14:51 BP 179/71 H 04/22/25 14:55 Pulse Ox 99 04/22/25 14:51 O2 Del Method Room Air 04/22/25 14:51 BMI result Body Mass Index 28.0 Const: General: cooperative, healthy appearing, comfortable and no acute distress Orientation/consciousness: patient oriented x3 HEENT: Face and sinus: Yes normal facial exam Mouth: moist mucous membranes Neck: Neck: Yes normal visual inspection, Yes full ROM and Yes trachea midline Chest: Chest palpation & inspection: normal inspection of the chest Resp: Effort & Inspection: normal respiratory effort, able to speak in complete sentences and no respiratory distress GI: Inspection: Yes normal to inspection Back/Spine/Pelvis: Cervical Spine: normal cervical lordosis Thoracic/Lumbar Spine: thoracic and lumbar spine normal to inspection Skin: General skin exam: no rashes or lesions noted Neuro: General: patient oriented x3, tone normal and moves all extremities Extrem: General: Yes normal to inspection and Yes capillary refill normal Results Results Labs: Short CBC 04/22/25 Range/Units 11:40 WBC 8.6 (4.8-10.8) X10*3/uL Hgb 13.4 L (14.0-18.0) g/dl Hct 41.8 L (42.0-52.0) % Plt Count 186 (160-400) X10*3/uL BMP 04/22/25 11:40 Sodium 142 Potassium 4.1 Chloride 111 H Carbon Dioxide 23 BUN 19 H Creatinine 1.20 Calcium 9.0 Liver Function 04/22/25 Range/Units 11:40 Total Bilirubin 0.5 (0.0-1.0) mg/dL Direct Bilirubin 0.2 (0.0-0.5) mg/dL AST 29 (5-37) U/L ALT 28 (0-40) U/L Alkaline Phosphatase 52 (39-117) U/L Albumin 4.3 (3.5-5.0) g/dL Assessment and Plan (1) Nephrolithiasis: Status: Acute Plan Ureteroscopy We discussed the nature of the decision and reasonable alternatives for performing ureteroscopy. Options such as medical therapy were discussed. Interventions include chemical dissolution, ESWL, ureteroscopy with laser lithotripsy and stent placement, PCNL. The relative uncertainties and benefits related to each alternate procedure were adequately discussed. General surgical risks including, but not limited to - pain, bleeding, infection, myocardial infarction, pulmonary embolus, deep vein thrombosis and cerebrovascular accident which may result in further hospitalization were discussed. Full disclosure of the procedure as well as all major risks, benefits and complications were discussed including but not limited to damage to the urethra, bladder and kidney infection, damage to the ureter, stent migration or malposition, scarring to the renal pelvis, remnant stone fragments, subsequent stone passage with need for secondary procedures. The overall secondary procedure rate is approximately 10-15%. The overall clearance rate is approximately 90-95%. Success of the procedure in the short-term does not necessarily guarantee that long-term success will be maintained. Suitable follow up will need to be maintained. The patient showed understanding of discussion and wishes to proceed with - cystoscopy, retrograde, ureteroscopy, possible lithotripsy/stone basketing and stent on the left side Quality Stroke Does the patient have a stroke diagnosis?: No VTE Prior VTE?: No VTE Risk Level:: Medical - moderate - high VTE Device Contraindication: N/A - Device Ordered VTE Drug Contraindication: Treatment Not Indicated Procedures Date of Service Date of Service: 04/22/25
--- NOTE | 2025-04-22 16:23 | MHC.SHP ---
Pre-Procedural Eval Section A - 24 Hr Update-Section A only Date of Service: 04/22/25 The patient is an INPATIENT: No Changes since office visit: No Cold of Flu in the past 2 weeks, No New Medical Problems, No Changes in Medication and No Patient answered all questions The patient has been examined within 24 hours of the surgical procedure. The History & Physical has been completed within 30 days and I have reviewed it.: Yes Section B - Complete if H&P > 30 days Chief Complaint: hydronephrosis Details of Present Illness: Left ureteric stone Allergies: Allergies Allergy/AdvReac Type Severity Reaction Status Date / Time No Known Allergies (No Known Allergy Verified 04/22/25 10:57 Allergies*) Plan I have reviewed the history and physical and performed a pertinent physical examination on my patient. No changes have occurred unless specified. Time Spent With Patient Time: Total time managing care of this patient today ____ minutes.
--- NOTE | 2025-04-22 17:13 | W.PM.OPN ---
Operative Note Operative Note Date of Service: 04/22/25 Narrative: PreOperative Diagnosis: 1. Left UPJ stone 2. Stones in upper pole Post Operative Diagnosis: Same Procedure: - cystoscopy, left retrograde - left dilatation of ureteric orifice under fluoroscopy - left ureteroscopy, laser lithotripsy at multiple stone locations with in kidney, stone basketing - left stent placement Surgeon: Dr Dao Schmitt Anesthesia: General Indications for procedure: Presentation through emergency room. CT scan with 10 mm left UPJ stone and hydro nephrosis. Also stones noted within the upper pole of the left kidney. Recommendation for ureteroscopy to manage multiple stone location simultaneously. Procedure: After informed consent was verified patient was brought to the operating placed in supine position. Anesthesia was administered per protocol. Patient was placed in modified dorsal lithotomy position and prepped and draped in a sterile fashion. Safety pause time-out and side of surgery confirmed. Antibiotics confirmed. A 22 Greenlandic cystoscope was inserted per urethra. The urethra and bladder were normal in their entirety. Both ureteric orifices were in normal position. The left ureteric orifice was cannulated and a retrograde examination was performed. Filling defect left UPJ. A Sensor guidewire was placed up to the level of the renal pelvis under fluoroscopy. The stone was pushed back into the renal pelvis. The rigid cystoscope was removed and the inner cannula of ureteric access sheath was used under fluoroscopy to dilate the ureteric orifice. The ureteric access sheath was placed and the inner cannula with access wire removed. The digital flexible ureteral scope was placed. A stone was encountered in mid pole area. Using the holmium 200micron quanta fiber the stone was broken into small pieces using a combination of dusting and hammer technique. Individual fragments were located within the different renal poles and broken into small pieces. Using a ZeroTip 1.9 Greenlandic basket fragments were removed. Proximally 6 passes were made with fragment removal. There were submucosal stones noted into of the upper pole calices. Using the laser settings these were found to be membrane with stones underneath. The membrane was divided and small stones were released. Using the 4 Greenlandic open-ended catheter the renal pelvis was washed out and more fragments removed. At the completion of the stone procedure a Sensor wire was placed back into the renal pelvis. The rigid cystoscope was backloaded over the wire and advanced into the bladder. A 6 Greenlandic by 28 cm double-J stent was placed into the renal pelvis and bladder under a combination of fluoroscopy and direct visualization. Proximal positioning of the stent was confirmed using fluoroscopy. The bladder was emptied. The patient tolerated the procedure well and was extubated in the operating room, and transferred in stable condition to the recovery area. Pathology: Stones Drains: Stent as above
[2025-04-22] MEDS: Lactated Ringers 1,000 ML 100 ML IVCONT (18:33)
--- NOTE | 2025-04-22 20:32 | PHA.MEDREC ---
Pharmacy Consult ? Medication Reconciliation Pharmacy has completed the medication reconciliation. Patient confirmed he does not take any medications at home. His friend picked up his medications (naproxen, prednisone, tamsulosin) today at [facility] but he hasn't started taking them yet.
[2025-04-23 04:00] VITALS: BP 166/69; PULSE 70; RESP 18; TEMP 36.8; O2SAT 99
[2025-04-23 06:18] LABS: MANUAL DIFF FLAG NO
[2025-04-23 06:23] LABS: Hematocrit 39.1 % (42.0-52.0); Hemoglobin 12.5 g/dl (14.0-18.0); Imm Gran Abs Auto 0.04 X10*3/uL (0.00-0.03); Imm Gran Pct Auto 0.3 % (0.0-0.4); Lymphocytes Absolute Auto 0.7 X10*3/uL (1.2-4.9); Mean Corpuscular HGB Conc 32.0 g/dl (31.0-36.0); Mean Corpuscular Hemoglobin 26.7 pg (27.0-33.0); Mean Corpuscular Volume 83.4 fL (80.0-98.0); NRBC Abs Auto 0.000 X10*3/uL (0.0-0.012); NRBC Pct Auto 0.0 /100WBC (0.0-0.2); Platelet Count 180 X10*3/uL (160-400); Red Blood Count 4.69 X10*6/uL (4.60-5.80); White Blood Count 12.0 X10*3/uL (4.8-10.8)
[2025-04-23 06:34] LABS: INTERNATIONAL NORM RATIO 1.0 (0.9-1.1); Prothrombin Time 11.9 SEC (10.9-12.4)
[2025-04-23 06:39] LABS: Alanine Aminotransferase 20 U/L (0-40); Albumin Level 3.6 g/dL (3.5-5.0); Alkaline Phosphatase 44 U/L (39-117); Anion Gap 10 (12-20); Aspartate Amino Transferase 23 U/L (5-37); Blood Urea Nitrogen 18 mg/dL (9-16); Calcium 8.5 mg/dL (8.4-10.2); Carbon Dioxide 22 mmol/L (22-29); Chloride 113 mmol/L (96-108); Creatinine Clr Calc Pharmacy 62.3; Estimated Glomerular Filt Rate 59; Magnesium 1.9 mg/dL (1.6-2.6); Potassium 4.2 mmol/L (3.3-5.1); Sodium 141 mmol/L (135-145); Total Protein 5.6 g/dL (6.5-8.0)
[2025-04-23] MEDS: Lactated Ringers 1,000 ML 100 ML IVCONT ×2 (06:50→13:26)
--- NOTE | 2025-04-23 07:09 | PC.NURSE ---
Patient c/o pain with urination. [place]/orange tinged urine. No clots or shreds. Patient states that while he is urinating it is hard for him to tell if he has emptied his bladder due to pain. He stated he sometimes feels that he has urinated enough but stops due to pain. Patient states the pain resolves shortly after and denies need for pain medication. He was bladder scanned this morning for 167 PVR. Ambulating to the bathroom steady gait.
--- NOTE | 2025-04-23 07:15 | P.PNIM_ITS ---
Subjective Subjective Date of Service: 04/23/25 Interval History: Patient is status post stent Appears to be stable Follow stone analysis Review of Systems Review of Systems: Yes all other systems are reviewed and are negative Physical Exam 2 Exam: Exam: General: AOx3, no acute distress Resp: CTA bilaterally CVS: S1, S2, RRR GI: +BS, NT, no distention Skin: Warm, dry Neuro: Motor grossly intact bilaterally Objective Data Active Medications Acetaminophen (Acetaminophen 325 Mg Tablet) 650 mg PO Q6H PRN PRN Reason: Pain, Mild 1-3,fever,headache Calcium Carbonate (Calcium Carbonate 750 Mg Tab.Chew) 750 mg PO Q4H PRN PRN Reason: Heartburn Lactated Ringer's (Lr) 1,000 mls @ 100 mls/hr IVCONT .Q10H [facility] Last Admin: 04/23/25 06:50 Dose: 100 mls/hr Documented By: MOSHE Magnesium Hydroxide (Milk Of Magnesia 30 Ml Oral.Susp) 30 ml PO DAILY PRN PRN Reason: Constipation Melatonin (Melatonin 3 Mg Tablet) 6 mg PO BEDTIME PRN PRN Reason: Insomnia Morphine Sulfate (Morphine Sulfate 2 Mg/Ml Cartridge) 2 mg IVPUSH Q3H PRN; Protocol PRN Reason: Pain, Severe (Pain Scale 7-10) Naloxone HCl (Naloxone Hcl 0.4 Mg/Ml Vial) 0.04 mg IVPUSH Q5M PRN PRN Reason: Excessive sedation or RR < 8 Ondansetron HCl (Ondansetron Hcl 4 Mg/2 Ml Vial) 4 mg IVPUSH Q8H PRN PRN Reason: Nausea and Vomiting Oxycodone HCl (Oxycodone Hcl Immed Release 5 Mg Tablet) 5 mg PO Q4H PRN PRN Reason: Pain, Mild (Pain Scale 1-3) Sodium Chloride (0.9 % Sodium Chloride Flush 3 Ml Syringe) 3 ml IVFLUSH QSHIFT [facility] Last Admin: 04/22/25 21:43 Dose: Not Given Documented By: CLAUDETTE Non-Admin Reason: IV Running Labs 04/23/25 05:32 04/23/25 05:32 Labs: Laboratory Results - last 24 hr 04/22/25 04/23/25 11:40 05:32 MCV 82.6 83.4 MCH 26.5 L 26.7 L MCHC 32.1 32.0 RDW 13.2 13.3 Plt Count 186 180 MPV 11.3 11.8 Immature Gran % (Auto) 0.3 0.3 Neut % (Auto) 84.4 H 87.8 H Lymph % (Auto) 10.1 L 5.7 L [place] % (Auto) 4.2 6.1 Eos % (Auto) 0.2 0.0 Baso % (Auto) 0.8 0.1 Lymph # (Auto) 0.9 L 0.7 L [place] # (Auto) 0.4 0.7 Eos # (Auto) 0.0 0.0 Baso # (Auto) 0.1 0.0 Abs Immat Gran (auto) 0.03 0.04 H Absolute Neuts (auto) 7.3 10.6 H Absolute Nucleated RBC 0.000 0.000 Nucleated RBC % (auto) 0.0 0.0 PT 11.9 INR 1.0 Anion Gap 12 10 L Estim Creat Clear Calc 62.3 62.3 Estimated GFR 59 59 Random Glucose 159 H 129 H Calcium 9.0 8.5 Magnesium 2.0 1.9 Total Bilirubin 0.5 0.6 Direct Bilirubin 0.2 AST 29 23 ALT 28 20 Alkaline Phosphatase 52 44 Troponin I High Sens 4.2 Total Protein 6.7 5.6 L Albumin 4.3 3.6 Assessment and Plan (1) Nephrolithiasis: Status: Acute Plan 75-year-old man with a history of renal calculi presented with acute left flank pain nausea and vomiting and was found to have [id number] obstructive uropathy secondary to nephrolithiasis. Underwent stent and lithotripsy on 04/22/2025. Obstructive uropathy secondary to left nephrolithiasis Follow stone analysis Pain management Does not appear to have sepsis, hence no antibiotics indicated We will challenge with diet and if he continues to improve can be discharged tomorrow Normocytic anemia Stable H&H no need for blood transfusion. Elevated blood pressure readings Likely secondary to pain Monitor DVT prophylaxis : Lovenox Full code This note is constructed using voice recognition software. While every effort has been made to ensure accuracy, reading coach errors may have been included. Quality Stroke Does the patient have a stroke diagnosis?: No VTE Prior VTE?: No VTE Risk Level:: Medical - moderate - high VTE Device Contraindication: N/A - Device Ordered VTE Drug Contraindication: Treatment Not Indicated
[2025-04-23 07:41] VITALS: BP 144/70; PULSE 69; RESP 20; TEMP 36.7; O2SAT 94
--- NOTE | 2025-04-23 09:19 | HO.POSTANES ---
Post Anesthesia Evaluation Post Anesthesia Evaluation Date of Service: 04/23/25 Vital Signs: Vital Signs Temp Pulse Resp BP Pulse Ox O2 Del Method 04/23/25 07:41 98.0 F 69 20 144/70 H 94 Room Air 04/23/25 04:00 98.3 F 70 18 166/69 H 99 Room Air 04/22/25 23:54 97.1 F 77 18 160/70 H 94 Room Air Anesthesia: General Mental Status: Awake Pain Control: Satisfactory Nausea/Vomiting: None Hydration: Adequate Anesthesia-Related Issues: No Anes. Related Issues
--- NOTE | 2025-04-23 10:43 | MHC.CM.PN ---
IMM DELIVERED PT LIVES WITH SPOUSE AND IS FUNCTIONALLY INDEPENDENT/ACTIVE AND EMPLOYED. NO SERVICES OR DME. + HCP (COPY AT HOME AND WITH DAUGHTER) PCP DR. KEMP. DP: HOME, NO SERVICES IS ANTICIPATED. PT HAS OWN RIDE HOME. CM WILL CONTINUE TO FOLLOW FOR ANY CHANGE TO DC PLAN/NEEDS.
[2025-04-23 11:44] VITALS: BP 154/74; PULSE 62; RESP 20; TEMP 36.6; O2SAT 97
[2025-04-23 16:00] VITALS: BP 140/64; PULSE 60; RESP 18; TEMP 36.7; O2SAT 96
--- NOTE | 2025-04-23 18:53 | PC.NURSE ---
Iv fluids stopped as per Md Schmitt
[2025-04-23 20:00] VITALS: BP 146/70; PULSE 66; RESP 18; TEMP 36.9; O2SAT 95
[2025-04-23] MEDS: 0.9 % Sodium Chloride Flush 3 ML SYRINGE IVFLUSH (21:29)
[2025-04-24] VITALS: BP 158/72; PULSE 59; RESP 18; TEMP 36.8; O2SAT 95
[2025-04-24 04:00] VITALS: BP 150/68; PULSE 62; RESP 16; TEMP 36.6; O2SAT 96
[2025-04-24 05:33] LABS: MANUAL DIFF FLAG NO
[2025-04-24 05:37] LABS: Hematocrit 35.9 % (42.0-52.0); Hemoglobin 11.8 g/dl (14.0-18.0); Imm Gran Abs Auto 0.03 X10*3/uL (0.00-0.03); Imm Gran Pct Auto 0.3 % (0.0-0.4); Lymphocytes Absolute Auto 1.7 X10*3/uL (1.2-4.9); Mean Corpuscular HGB Conc 32.9 g/dl (31.0-36.0); Mean Corpuscular Hemoglobin 27.1 pg (27.0-33.0); Mean Corpuscular Volume 82.5 fL (80.0-98.0); NRBC Abs Auto 0.000 X10*3/uL (0.0-0.012); NRBC Pct Auto 0.0 /100WBC (0.0-0.2); Platelet Count 168 X10*3/uL (160-400); Red Blood Count 4.35 X10*6/uL (4.60-5.80); White Blood Count 11.2 X10*3/uL (4.8-10.8)
[2025-04-24 05:47] LABS: INTERNATIONAL NORM RATIO 1.1 (0.9-1.1); Prothrombin Time 12.3 SEC (10.9-12.4)
[2025-04-24 06:05] LABS: Alanine Aminotransferase 16 U/L (0-40); Albumin Level 3.4 g/dL (3.5-5.0); Anion Gap 10 (12-20); Aspartate Amino Transferase 19 U/L (5-37); Blood Urea Nitrogen 19 mg/dL (9-16); Calcium 8.5 mg/dL (8.4-10.2); Carbon Dioxide 24 mmol/L (22-29); Chloride 113 mmol/L (96-108); Creatinine Clr Calc Pharmacy 70.5; Estimated Glomerular Filt Rate > 60; Magnesium 2.1 mg/dL (1.6-2.6); Potassium 3.9 mmol/L (3.3-5.1); Sodium 143 mmol/L (135-145); Total Protein 5.5 g/dL (6.5-8.0)
[2025-04-24 06:06] LABS: Alkaline Phosphatase 41 U/L (39-117)
--- NOTE | 2025-04-24 07:10 | P.PNIM_ITS ---
Subjective Subjective Date of Service: 04/24/25 Physical Exam 2 Vital Signs: Vital Signs: Last Vital Signs Temp 98 F 04/24/25 04:00 Pulse 62 04/24/25 04:00 Resp 16 04/24/25 04:00 BP 150/68 H 04/24/25 04:00 Pulse Ox 96 04/24/25 04:00 O2 Del Method Room Air 04/24/25 04:00 O2 Flow Rate 2 04/22/25 17:51 BMI result Body Mass Index 28.0 Objective Data Active Medications Acetaminophen (Acetaminophen 325 Mg Tablet) 975 mg PO Q6H [facility] Last Admin: 04/24/25 01:51 Dose: Not Given Documented By: BLANCA Non-Admin Reason: Patient Refused Calcium Carbonate (Calcium Carbonate 750 Mg Tab.Chew) 750 mg PO Q4H PRN PRN Reason: Heartburn Enoxaparin Sodium (Enoxaparin Sodium 40 Mg/0.4 Ml Syringe) 40 mg SUBCUT Q24H [facility] Last Admin: 04/23/25 17:21 Dose: 40 mg Documented By: SAMARA Lactated Ringer's (Lr) 1,000 mls @ 100 mls/hr IVCONT .Q10H [facility] Last Admin: 04/24/25 05:23 Dose: Not Given Documented By: BLANCA Non-Admin Reason: Physician Held Med Magnesium Hydroxide (Milk Of Magnesia 30 Ml Oral.Susp) 30 ml PO DAILY PRN PRN Reason: Constipation Melatonin (Melatonin 3 Mg Tablet) 6 mg PO BEDTIME PRN PRN Reason: Insomnia Morphine Sulfate (Morphine Sulfate 4 Mg/Ml Cartridge) 2 mg IVPUSH Q3H PRN; Protocol PRN Reason: Pain, Severe (Pain Scale 7-10) Naloxone HCl (Naloxone Hcl 0.4 Mg/Ml Vial) 0.04 mg IVPUSH Q5M PRN PRN Reason: Excessive sedation or RR < 8 Ondansetron HCl (Ondansetron Hcl 4 Mg/2 Ml Vial) 4 mg IVPUSH Q8H PRN PRN Reason: Nausea and Vomiting Oxycodone HCl (Oxycodone Hcl Immed Release 5 Mg Tablet) 5 mg PO Q4H PRN PRN Reason: Pain, Mild (Pain Scale 1-3) Phenazopyridine HCl (Phenazopyridine Hcl 100 Mg Tablet) 100 mg PO TIDWM PRN PRN Reason: spasms Stop: 04/25/25 18:31 Last Admin: 04/23/25 18:56 Dose: 100 mg Documented By: SAMARA Sodium Chloride (0.9 % Sodium Chloride Flush 3 Ml Syringe) 3 ml IVFLUSH QSHIFT [facility] Last Admin: 04/23/25 21:29 Dose: 3 ml Documented By: BLANCA Labs 04/24/25 05:24 04/24/25 05:24 Labs: Laboratory Results - last 24 hr 04/24/25 05:24 MCV 82.5 MCH 27.1 MCHC 32.9 RDW 13.3 Plt Count 168 MPV 11.3 Immature Gran % (Auto) 0.3 Neut % (Auto) 71.8 Lymph % (Auto) 15.2 L [place] % (Auto) 11.0 Eos % (Auto) 1.1 Baso % (Auto) 0.6 Lymph # (Auto) 1.7 [place] # (Auto) 1.2 Eos # (Auto) 0.1 Baso # (Auto) 0.1 Abs Immat Gran (auto) 0.03 Absolute Neuts (auto) 8.1 Absolute Nucleated RBC 0.000 Nucleated RBC % (auto) 0.0 PT 12.3 INR 1.1 Anion Gap 10 L Estim Creat Clear Calc 70.5 Estimated GFR > 60 Random Glucose 101 Calcium 8.5 Magnesium 2.1 Total Bilirubin 0.7 AST 19 ALT 16 Alkaline Phosphatase 41 Total Protein 5.5 L Albumin 3.4 L Quality Stroke Does the patient have a stroke diagnosis?: No VTE Prior VTE?: No VTE Risk Level:: Medical - moderate - high VTE Device Contraindication: N/A - Device Ordered VTE Drug Contraindication: Treatment Not Indicated
[2025-04-24] MEDS: 0.9 % Sodium Chloride Flush 3 ML SYRINGE IVFLUSH (07:33)
[2025-04-24 08:00] VITALS: BP 150/60; PULSE 63; RESP 16; TEMP 37.2; O2SAT 97
--- NOTE | 2025-04-24 08:13 | P.DS_ITS ---
DS: Providers Provider Date of Service: 04/24/25 Date of admission: 04/22/25 14:30 Date of discharge: 04/24/25 Primary care physician: Norman Mera MD Consults: 04/22/25 14:30 Consult to Urology Routine Consulting Provider: [facility] Reason for consultation: Hydronephrosis with obstructing stone DS: Diagnosis Discharge Diagnosis (1) Nephrolithiasis: Status: Acute DS: Summary Hospital Course Hospital Course: Obstructive uropathy secondary to left nephrolithiasis Follow stone analysis by urology 75-year-old man with a history of renal calculi presented with acute left flank pain nausea and vomiting and was found to have bris-[id number]-[id number] obstructive uropathy secondary to nephrolithiasis. Underwent stent and lithotripsy on 04/22/2025 with no events. Pain management with tylenol DVT prophylaxis : Lovenox Full code This note is constructed using voice recognition software. While every effort has been made to ensure accuracy, tempering oven operator errors may have been included. Time spent discussing smoking cessation with patient: more than 10 minutes Time Attestation Discharge Coordination Time (in mins): 35 Quality: Safe Use of Opioids Does Pt have an Active Cancer Diagnosis on the Problem List?: No Quality: Stroke Does the patient have a stroke diagnosis?: No Physical Exam Vital Signs: Vital Signs: Last Vital Signs Temp 98 F 04/24/25 04:00 Pulse 62 04/24/25 04:00 Resp 16 04/24/25 04:00 BP 150/68 H 04/24/25 04:00 Pulse Ox 96 04/24/25 04:00 O2 Del Method Room Air 04/24/25 04:00 O2 Flow Rate 2 04/22/25 17:51 BMI result Body Mass Index 28.0 DS: Data Data Completed and Pending Pending studies at discharge: Pending at discharge 04/22/25 17:00 Surgical [PTH] Routine Labs on day of discharge: Laboratory Results - last 24 hr 04/24/25 05:24 WBC 11.2 H RBC 4.35 L Hgb 11.8 L Hct 35.9 L MCV 82.5 MCH 27.1 MCHC 32.9 RDW 13.3 Plt Count 168 MPV 11.3 Immature Gran % (Auto) 0.3 Neut % (Auto) 71.8 Lymph % (Auto) 15.2 L [place] % (Auto) 11.0 Eos % (Auto) 1.1 Baso % (Auto) 0.6 Lymph # (Auto) 1.7 [place] # (Auto) 1.2 Eos # (Auto) 0.1 Baso # (Auto) 0.1 Abs Immat Gran (auto) 0.03 Absolute Neuts (auto) 8.1 Absolute Nucleated RBC 0.000 Nucleated RBC % (auto) 0.0 PT 12.3 INR 1.1 Sodium 143 Potassium 3.9 Chloride 113 H Carbon Dioxide 24 Anion Gap 10 L BUN 19 H Creatinine 1.06 Estim Creat Clear Calc 70.5 Estimated GFR > 60 Random Glucose 101 Calcium 8.5 Magnesium 2.1 Total Bilirubin 0.7 AST 19 ALT 16 Alkaline Phosphatase 41 Total Protein 5.5 L Albumin 3.4 L Discharge Plan Discharge Anticipated Discharge Date/Time: 04/24/25 08:06 Patient Disposition: Home, Self-Care Discharge Diagnosis: Nephrolithisis s/p stent placement Referrals: Dao Schmitt MD [Physician, Urology] - 1 Week Norman Mera MD [Primary Care Provider, Internal Medicine] - 1 Week Discharge Medications: New phenazopyridine 100 mg Tablet 100 mg PO TIDWM PRN (Reason: spasms) Qty: 7 0RF Discharge Orders: Discharge Order (Routine); Ordered 04/24/25 Ordered By: Carmen Charlton Diet: Advance to usual diet Activity on Discharge: As tolerated Stand Alone Forms: Patient Portal Discharge page Print Language: Gabonese Care Plan Goals: Drink water F/up stone analysis - Urology office will call No smoking , follow up with PCP 1 week from [facility] Concerns: See above Plan of Treatment: see above Assessment: see above
[2025-04-24 08:53] LABS: Appearance Urine Cloudy; Glucose Urine UA Negative (Negative); PH 6.5 (5.0-9.0); Specific Gravity - Urine 1.020 (1.005-1.025); UMIC TRIGGER UACC YES
[2025-04-24 09:12] LABS: UACC Culture Trigger YES
--- NOTE | 2025-04-24 09:32 | MHC.CM.PN ---
IMM 04/23/25 Patient discharged to home selfcare. He will arrange for a ride home.
== END 2025-04-24 10:33 | disposition home or self-care (01) | DRG 660 ==
LOC: HO.ED 14:46 → HO.EDOVER 14:49 → HO.S3 17:09
PROVIDERS: Physician Assistant Medical; Urology; Admitting Provider Nurse Practitioner Acute Care; Emergency Provider Emergency Medicine; PCP Internal Medicine; Visit Provider Student in an Organized Health Care Education/Training Program
PROC: 0T778DZ Dilation of Left Ureter with Intraluminal Device, Via Natural or Artificial Opening Endoscopic (ICD-10-PCS; principal; 2025-04-22 16:00)
DX: N13.2 Hydronephrosis with renal and ureteral calculous obstruction (principal); N13.8 Other obstructive and reflux uropathy; D64.9 Anemia, unspecified; R03.0 Elevated blood-pressure reading, without diagnosis of hypertension; N40.1 Benign prostatic hyperplasia with lower urinary tract symptoms; Z79.899 Other long term (current) drug therapy
CPT/HCPCS: 36415; 74176; 80048; 80053; 80076; 81001; 81003; 82365; 83735; 84484; 85025; 85610; 87086; 88300; 93005; 99285; C1758; C1769; C1894; C2617; J0131; J1100; J1650; J1885; J1956; J2003; J2250; J2270; J2405; J2704; J3010; J7120; Q9967

== ENCOUNTER → 2025-04-22 11:17 | Outpatient (BNV) | payer MEDICARE, SELFPAY | PROVIDERS: Admitting Provider Nurse Practitioner Acute Care; Emergency Provider Emergency Medicine; PCP Internal Medicine; Visit Provider Internal Medicine Cardiovascular Disease | DX: R00.1 Bradycardia, unspecified (principal) | CPT/HCPCS: 93010 ==

== ENCOUNTER → 2025-04-22 12:06 | Outpatient (BNV) | payer MEDICARE, SELFPAY | PROVIDERS: Emergency Provider Emergency Medicine; PCP Internal Medicine; Visit Provider Radiology Diagnostic Radiology | DX: N13.2 Hydronephrosis with renal and ureteral calculous obstruction (principal); K57.30 Diverticulosis of large intestine without perforation or abscess without bleeding | CPT/HCPCS: 74176 ==

== ENCOUNTER → 2025-04-22 14:30 | Outpatient (BNV) | payer MEDICARE, SELFPAY | PROVIDERS: Admitting Provider Nurse Practitioner Acute Care; Emergency Provider Emergency Medicine; PCP Internal Medicine; Visit Provider Urology | DX: N20.2 Calculus of kidney with calculus of ureter (principal) | CPT/HCPCS: 52356; 74420; 99222; 99499 ==

== ENCOUNTER → 2025-04-22 14:30 | Outpatient (BNV) | payer MEDICARE, SELFPAY | PROVIDERS: Admitting Provider Nurse Practitioner Acute Care; Emergency Provider Emergency Medicine; PCP Internal Medicine; Visit Provider Student in an Organized Health Care Education/Training Program | DX: N20.0 Calculus of kidney (principal) | CPT/HCPCS: 99223; 99232 ==

== ENCOUNTER 2025-05-01 10:30 | Outpatient (AMB) | payer MEDICARE, SELFPAY ==
--- NOTE | 2025-05-01 10:46 | A.OFFVIS_ITS ---
Intake Visit Reasons: Cysto/Stent removal Intake Note: Patient is present for cystoscopy stent removal Urology Medication:NONE Blood Thinner: None ALLERGIES: NONE Superintendent [employer] Required: No Accompanied by: Self / Same As Patient Allergies No Known Allergies (No Known Allergies*) Allergy (Verified 05/01/25 10:52) HPI Comments Details: Acosta is a pleasant male. He is a patient of Dr. Mera. 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 [place] Nephrolithiasis Ongoing nephrolithiasis Prior stone passage Imaging - 05/30 renal ultrasound with bilateral cysts up to 5 cm and bilateral small stones up to 3 mm - 06/30 KUB - small stone - 07/02 renal ultrasound multiple small stones remain 4 mm, multiple cysts Stone composition - 09/27 calcium oxalate monohydrate 80% Continued management B6 Renal cell carcinoma Status post cryoablation right side with renal cyst Recent imaging shows minimal change Lower urinary tract symptoms Doing well from a urinary point of view No current therapy PSA - 08/30 2.4 PFSH Medical History Mild acid reflux Malignant neoplasm of kidney BPH loc w urin obs/LUTS H/O nephrolithotomy with removal of calculi H/O renal calculi Surgical History Hx of tonsillectomy History of lithotripsy Social History Household Members: Spouse Housing: House Do you presently have visiting nurse or other home services: No Alcohol intake: current Alcohol intake frequency: holidays/special occasions only Patient Tobacco Use Status: Never used Tobacco Second Hand Smoke Exposure: No service: No Review of Systems Const Denies chills and Denies fever(s) Card Reports no additional complaints and Denies syncope Resp Denies cough GI Denies abdominal pain and Denies heartburn Reports as per HPI and Denies change in libido Neuro Denies syncope Psych Denies change in libido Endo Denies change in libido Physical Exam Const General: cooperative, healthy appearing, comfortable and no acute distress Orientation/consciousness: patient oriented x3 HEENT Face and sinus: Yes normal facial exam Mouth: moist mucous membranes Neck Neck: Yes normal visual inspection, Yes full ROM and Yes trachea midline Chest Chest palpation & inspection: normal inspection of the chest Resp Effort & Inspection: normal respiratory effort, able to speak in complete sentences and no respiratory distress GI Inspection: Yes normal to inspection Back/Spine/Pelvis Cervical Spine: normal cervical lordosis Thoracic/Lumbar Spine: thoracic and lumbar spine normal to inspection Skin General skin exam: no rashes or lesions noted Neuro General: patient oriented x3, gait normal, tone normal and moves all extremities Extrem General: Yes normal to inspection and Yes capillary refill normal Office Procedures Cystoscopy Consent Discussed risk and benefit or proposed procedure with the patient. Information consent for procedure given to the patient. Discussed technical aspects, risks, benefits and alternatives in full. Addressed all of the patient's questions and concerns regarding the procedure. The patient demonstrated knowledge and understanding. They wish to proceed with this procedure. Preparation The patient was prepped in the usual manner. A tow bar driver was present and in the room. Genitalia was prepped with betadine solution in a sterile manner. Lidocaine Jelly 2% was placed into the urethra and 16Fr flexible Olympus cystoscope was inserted into the meatus after adequate lubrication. Procedure A well lubricated 16 Bulgarian cystoscope was placed No abnormality noted of urethra during placement Indwelling stent seen within bladder emerging from left ureteric orifices The stent was grasped with a 3 prong grasper and removed without difficulty The patient tolerated the procedure well [id number] with stent removal DISPOSABLE SCOPE URO-G FLEXIBLE SCOPE Procedure code (CPT) selection complete Office Meds lidocaine HCl 2 % mucosal jelly in applicator Performing Provider: Dao Schmitt MD Performing Location: [facility] Administered by: Kat Chavez RN on 05/01/25 11:25 Dose Route Admin Location Dispensed Lot Number Expiration Date [facility] Brush Holder Inspector 10 mL intra-urethral 10 mL nitrofurantoin monohydrate/macrocrystals 100 mg capsule Performing Provider: Dao Schmitt MD Performing Location: [facility] Administered by: Kat Chavez RN on 05/01/25 11:25 Dose Route Admin Location Dispensed Lot Number Expiration Date [place] Brush Holder Inspector 100 mg PO 1 cap Comments: Patient took Naproxen already today, so naproxen held at this time naproxen 500 mg tablet Performing Provider: Dao Schmitt MD Performing Location: [facility] Documented (not given) by: Kat Chavez RN on 05/01/25 11:25 Reason Not Given: Not Medically Necessary Results AMB Urinalysis, Automated UA Leukoctes 125 Bobby/uL Last Edit by Josselyn Colon, [facility] on 05/01/25 12:37 UA Nitrite Negative Last Edit by Josselyn Colon, [facility] on 05/01/25 12:37 UA Urobilinogen 0.2 mg/dL Last Edit by Josselyn Colon, [facility] on 05/01/25 12:37 UA Protein 100 mg/dL Last Edit by Josselyn Colon, [facility] on 05/01/25 12:37 UA pH 6.0 Last Edit by Josselyn Colon, [facility] on 05/01/25 12:37 UA Blood 200 Yonis/uL Last Edit by Josselyn Colon, [facility] on 05/01/25 12:37 UA Specific [place] 1.030 Last Edit by Josselyn Colon, [facility] on 05/01/25 12:3 7 UA Ketone Negative Last Edit by Josselyn Colon, [facility] on 05/01/25 12:37 UA Bilirubin 0 mg/dL Last Edit by Josselyn Colon, [facility] on 05/01/25 12:37 UA Glucose 0 mg/dL Last Edit by Josselyn Colon, [facility] on 05/01/25 12:37 Results Reviewed Results Reviewed: Laboratory Last Values Urine pH (Auto) 6.0 05/01/25 12:36 Specific [place] (Auto) 1.030 05/01/25 12:36 Urine Protein (Auto) 100 mg/dL 05/01/25 12:36 Glucose (UA)(Auto) 0 mg/dL 05/01/25 12:36 Urine Ketones (Auto) Negative 05/01/25 12:36 Urine Blood (Auto) 200 Yonis/uL 05/01/25 12:36 Urine Nitrite (Auto) Negative 05/01/25 12:36 Urine Bilirubin (Auto) 0 mg/dL 05/01/25 12:36 Urine Urobilinogen (Auto) 0.2 mg/dL 05/01/25 12:36 Leukocyte Esterase (Auto) 125 Bobby/uL 05/01/25 12:36 Assessment & Plan Assessment & Plan (1) Nephrolithiasis: Code(s): N20.0 - Calculus of kidney Category: Medical Plan Keep follow-up for renal ultrasound Orders: Orders AMB Cystoscopy Today N20.0 - Calculus of kidney Medications: New potassium citrate ER 20 mEq (2 x 10 mEq (1,080 mg)) PO BID 360 tabs 1RF 90 days N20.0 - Calculus of kidney Patient Instructions: This note is constructed using voice recognition software. While every effort has been made to ensure accuracy psychiatric attendant errors may have been included. Imaging studies, laboratory and physical exam results were discussed and reviewed in detail. No major barriers to patient understanding were identified. An opportunity to ask questions regarding the treatment plan was provided. All questions were answered. The patient expressed understanding and agreement with the above treatment plan. The patient is aware they should contact our office by phone for worsening of their current condition or the appearance of new urologic symptoms. Compliance is encouraged with any medications and followup testing that is ordered. It is a privilege to participate in the urologic care of your patient. If you have any questions or concerns regarding treatment for the above conditions, or other urologic issues, please do not hesitate to contact me. The office telephone contact is [phone]. Sincerely, Dr Dao Schmitt MD, [facility] - Urology Compassionate Specialist Care for the Genitourinary System Coding Level of Care Code Est Pt Level 3 (49792) Complex EM visit Add On G2211 Diagnoses Nephrolithiasis N20.0 CPT Codes Cystoscopy - CPT: 00192-[id number] with stent removal ([id number])
--- OUTSIDE RECORDS SUMMARY | 2025-05-01 12:42 | XMS_ITS | Clinical Summary ---
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 Name Role Phone Noramn Mera DO Primary Care Provider [phone] Social History Tobacco Use Types Packs/Day Years [...] file Insurance MEDICARE PART A & B [employer] MED[employer] SUPPLEMENT MEDICARE PART A & B [employer] SUPPLEMENT MEDICARE PART A & B [employer] MED[employer] SUPPLEMENT MEDICARE PART A & B [employer] MED[employer] SUPPLEMENT MEDICARE PART A & B [employer] MEDEX SUPPLEMENT MEDICARE PART A & B [employer] CR[employer] MEDEX SUPPLEMENT Care Teams Shotgun Shell Assembly Machine Operator Relationship Specialty Start Date End Date Norman Mera DO [email or web address] PCP - General Internal Medicine 06/18/24 Additional Source Comments The information contained in this document represents components of the legal health record. It is not the complete legal health record.[facility]
== END 2025-05-01 11:48 | disposition home or self-care (01) ==
LOC: HO.HUSH 10:31
PROVIDERS: PCP Internal Medicine; Visit Provider Urology
DX: N20.0 Calculus of kidney (principal)
CPT/HCPCS: 52310; 99213

== ENCOUNTER → 2025-05-01 10:30 | Outpatient (BNVA) | payer MEDICARE, SELFPAY | PROVIDERS: PCP Internal Medicine; Visit Provider Urology | DX: Z46.6 Encounter for fitting and adjustment of urinary device (principal); N20.0 Calculus of kidney | CPT/HCPCS: 52310; 99212 ==

== ENCOUNTER 2025-06-18 08:53 | Outpatient (REF) | payer MEDICARE, SELFPAY ==
--- NOTE | ~2025-06-18 | US_ITS ---
CLINICAL HISTORY: N20.0 - Calculus of kidney US renal with Color Doppler Comparison: US/SR - US RENAL BI - 06/11/24 08:05 EST US/SR - US KIDNEY BILATERAL - 06/02/23 09:45 EST Findings: Right kidney normal size and echotexture, 12.8 cm length. No hydronephrosis. Nonobstructing caliceal stone midpole measuring 5 x 4 x 7 mm. Renal cortical cysts largest upper pole measuring 8.4 x 6.4 x 7.9 cm. Normal color flow. Left kidney normal size and echotexture, 11.8 cm length. No hydronephrosis. Normal color flow. Renal cortical cysts largest upper pole measuring 4.8 x 4.5 x 4.4 cm. Nephrolithiasis with a caliceal stone lower pole measuring 10 x 5 x 10 mm. Probable renal cortical calcification measuring 2.0 x 1.0 x 1.9 cm can be correlated with CT. Impression: 1. Bilateral benign renal cortical cysts. Nephrolithiasis as described. Indeterminate echogenic lesion lower pole left kidney can be correlated with contrast-enhanced CT or MRI. This document has been electronically signed by: Antonio Wiggins MD on 06/19/2025 10:42:47
[2025-06-18 11:41] LABS: Prostate Specific Antigen 2.83 ng/mL (<0.05-4.0)
== END 2025-06-18 08:54 ==
LOC: HO.US 08:53
PROVIDERS: PCP Internal Medicine; Visit Provider Urology
DX: N20.0 Calculus of kidney (principal); N40.1 Benign prostatic hyperplasia with lower urinary tract symptoms; Z12.5 Encounter for screening for malignant neoplasm of prostate
CPT/HCPCS: 36415; 76775; 84153

== ENCOUNTER 2025-06-27 11:25 | Outpatient (AMB) | payer MEDICARE, SELFPAY ==
--- NOTE | 2025-06-27 11:52 | MHC.OFFVIS ---
Intake Visit Reasons: Ultrasound/PSA(set) Intake Note: Reason for Visit: US/PSA Follow Up Urology Meds: Potassium Blood Thinners: None Labs: Last PSA: 2.38(2020) PSA: 2.83 06/18/2025 Imaging: Renal Ultrasound: 06/18/2025 Last PVR: None Vp Digital Marketing Required: No Accompanied by: Self / Same As Patient Allergies No Known Allergies (No Known Allergies*) Allergy (Verified 06/27/25 11:52) HPI Comments Details: Acosta is a pleasant male. He is a patient of Dr. Mera. 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 [place] Nephrolithiasis Ongoing nephrolithiasis Prior stone passage Imaging - 05/30 renal ultrasound with bilateral cysts up to 5 cm and bilateral small stones up to 3 mm - 06/30 KUB - small stone - 07/02 renal ultrasound multiple small stones remain 4 mm, multiple cysts - 07/03 bilateral renal stones left greater than right 8 mm left Stone composition - 09/27 calcium oxalate monohydrate 80% Continued management B6 Renal cell carcinoma Status post cryoablation right side with renal cyst Recent imaging shows minimal change Lower urinary tract symptoms Doing well from a urinary point of view No current therapy PSA - 08/30 2.4, 07/03 2.8 PFSH Medical History Mild acid reflux Malignant neoplasm of kidney BPH loc w urin obs/LUTS H/O nephrolithotomy with removal of calculi H/O renal calculi Surgical History Hx of tonsillectomy History of lithotripsy Social History Household Members: Spouse Housing: House Do you presently have visiting nurse or other home services: No Alcohol intake: current Alcohol intake frequency: holidays/special occasions only Patient Tobacco Use Status: Never used Tobacco Second Hand Smoke Exposure: No service: No Assessment & Plan Assessment & Plan (1) Nephrolithiasis: Code(s): N20.0 - Calculus of kidney Category: Medical Plan Continue current medications Imaging and Uro risk six-month Orders: Orders Prostate Specific Antigen 06/18/25 N40.1 - Benign prostatic hyperplasia with lower urinary tract symptoms CT kidney stone 06/27/25 N20.0 - Calculus of kidney URORISK 06/27/25 N20.0 - Calculus of kidney Patient Instructions: This note is constructed using voice recognition software. While every effort has been made to ensure accuracy php consultant errors may have been included. Imaging studies, laboratory and physical exam results were discussed and reviewed in detail. No major barriers to patient understanding were identified. An opportunity to ask questions regarding the treatment plan was provided. All questions were answered. The patient expressed understanding and agreement with the above treatment plan. The patient is aware they should contact our office by phone for worsening of their current condition or the appearance of new urologic symptoms. Compliance is encouraged with any medications and followup testing that is ordered. It is a privilege to participate in the urologic care of your patient. If you have any questions or concerns regarding treatment for the above conditions, or other urologic issues, please do not hesitate to contact me. The office telephone contact is [phone]. Sincerely, Dr Dao Schmitt MD, [facility] - Urology Compassionate Specialist Care for the Genitourinary System Coding Level of Care Code Est Pt Level 3 (98555) Add On Problem Visit Only Diagnoses Nephrolithiasis N20.0
--- OUTSIDE RECORDS SUMMARY | 2025-06-27 13:31 | XMS_ITS | Data Portability ---
Author Organization [facility], Telehealth Patient Home Address [address] [place] [address] Assessment Encounter Date Assessment Date Assessment LastModified by Organization Details LastModified Time 10/05/2020 10/05/2020 [id number] [place] [address] (VASC TECH) MDM MODERATE MUST MEET 2 OUT OF [...] COVERED Not available 10/05/2020 16:11:54 08/11/2021 08/11/20[place] [id number] [place] [address] (VASC TECH) MDM MODERATE MUST MEET 2 OUT OF [...] Modified Time Details Appointments None recorded. Lab CMP, serum or plasma 2023 024 [facility], [address] [place] [address], [address], 4 11:38:18 CBC w/ auto diff 2023 024 [facility], [address] [place] [address], [address], 4 12:55:50 PSA, serum or plasma 2023 024 [facility], [address] [place] [address], [address], 4 13:26:01 lipid panel, blood 2023 024 [facility], [address] [place] [address], [address], 4 13:24:29 lipid panel, serum 2021 022 [facility], [address] [place] [address], [address], 2 11:15:51 CMP, serum or plasma 2021 022 [facility], [address] [place] [address], [address], 2 11:15:51 CBC w/ auto diff 2021 022 [facility], [address] [place] [address], [address], 2 11:15:51 Referral dermatolog ist referral - also has several lesion on trunk 2020 021 roel Hartmann MD, [address], [place], [address], 08:40:24 Procedures None recorded. Surgeries None recorded. Imaging None recorded. Medication Orders None recorded. Patient TargetsNo targets recorded. 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 [facility] (Medical Records) [address] [place], [address], 06/05/2023 09:32:35 07/30/1906/11/2024 US, duple x, retro perit oneum , compl ete No observ ation record ed. [email or web address] [facility] (Medical Records) [address] [place], [address], 07/30/2024 10:17:09 04/22/20 25 04/22/2025 CT, abdom en + pelvi s, w/o contr ast No observ ation record ed. [email or web address] [facility] (Medical Records) [address] [place], [address], 04/22/2025 13:28:47 04/23/20 25 04/22/2025 fluor oscop y (PROC ) No observ ation record ed. [email or web address] [facility] (Medical Records) [address] [place], [address], 04/23/2025 09:25:17 06/19/20 25 06/18/2025 US, renal No observ ation record ed. [facility] (Medical Records) [address] [place] [address], [address], 06/20/2025 09:09:34 Result Notes None recorded. Problems Name Problem SNOMED Code Status Onset Date Resolution Date Notes Provider Name and Address Organization Details Recorded Time Low back pain 678488494 Active 2020 Norman Mera, DO [address] [place] [address], [phone], [facility] 15:46:23 Polyp of colon 91582970 Active 2020 Norman Mera, DO [address] [place] [address], [address], [facility] 15:46:33 Diverticul osis of sigmoid colon 627104202 Active 2020 Norman Mera [address], [address], [facility] 15:46:42 Internal hemorrhoid s 25873773 Active 2020 Norman Mera DO [address] [place] [address], [address], [facility] 15:46:49 Cyst of kidney 190123756 Active 2020 Norman Mera [address], [address], [facility] 15:47:00 Neoplasm of kidney 917940760 Active 2020 Norman Mera, DO [address] [place] [address], [address], [facility] 15:47:10 Malignant neoplasm of kidney 321335170 Active 2020 Norman Mera [address], [address], [facility] 1 15:47:17 Gastroesop hageal reflux disease 369772660 Active 2020 Norman Mera [address] [place], [address], [facility] 1 16:08:24 Calculus of kidney and ureter 985308102 Active 2020 Norman RosaDiana Mera, DO [address] [place], [address], [facility] 1 16:09:58 Problem Notes None recorded. Medical Equipment [...] (BMI) Body weight Heart rate Oxygen saturation Systolic And Diastolic Provider Name and Address Organization Details Last Updated DateTime 1 177.8 cm 30.9 kg/m2 73193.1 6 g 77 /min 97 % 130/70 mm[Hg] Bruna Messer [facility] 1 15:44:55 Date Recorded Body height Body mass index (BMI) Body weight Heart rate Oxygen saturation Systolic And Diastolic Provider Name and Address Organization Details Last Updated DateTime 2 177.8 cm 30.2 kg/m2 79774.1 9 g 77 /min 98 % 126/70 mm[Hg] Norman Mera, DO [address] [place], [address], [facility] 2 15:21:49 Date Recorded Body height Body mass index (BMI) Body weight Heart rate Oxygen saturation Systolic And Diastolic Provider Name and Address Organization Details Last Updated DateTime 4 177.8 cm 29.3 kg/m2 98431.8 4 g 58 /min 97 % 142/78 mm[Hg] Bere Rodrigues [place] - [facility] 11:07:32 Social History Question Answer Notes LastModified by Organizat ion Details LastModified Time Tobacco Smoking Status Never Smoker Bruna Gui garcia [facility] 10/05/2020 15:42:00 What Was The Date Of Your Most Recent Tobacco Screening? 06/04/2024 [email or web address] Information not available 06/04/2024 Sex: Unknown Functional Status Question Answer Note LastModified by Organization D etails LastModified Time Do you or have you ever used any other forms of tobacco or nicotine? No Information not available 05/25/2022 Mental Status None recorded. Family History Nothing Reported. Medical History No medical history recorded. Immunizations Vaccine Type Date Status Note Provider Nam e and Address Organization Details Recorded Time COVID-19, mRNA, LNP-S, PF, 100 mcg/0.5mL dose or 50 mcg/0.25mL dose 10/03/2020 completed Bruna garcia [facility] 10/05/2020 15:45:10 COVID-19, mRNA, LNP-S, PF, 100 mcg/0.5mL dose or 50 mcg/0.25mL dose 09/12/2020 completed Bruna garcia [facility] 10/05/2020 15:45:17 Past Encounters Encounter ID Performer Location Encounter Start Date Encounter Closed Date Diagnosis/Indication Diagnosis SNOMED-CT Code Diagnosis ICD10 Code Diagnosis IMO Codes Diagnosis Note [id number] Norman Mera [facility] [address] [place] [address],[place] [address] 10/05/2020 15:22:40 10/06/2020 14:59:09 Basal cell carcinoma of nose 378255750 C44.311 we will refer to get this removed Gastroesop hageal reflux disease 608449086 K21.9 stable using the otc prilosec et c Calculus o f kidney and ureter 845502804 N20.2 [facility] ;seen by dr mares [id number] Norman Mera [facility] [address] [place] [address],[place] [address] 08/11/2021 08:24:25 08/11/2021 12:07:16 Gastroesophageal reflux disease 882040217 K21.9 stable using the otc prilosec et c Calculus o f kidney and ureter 877571037 N20.2 will be followed by the urologist in [facility] have been stable and not moving Neoplasm of kidney 72272 0001 D49.519 sees the oncologist /urologist for q 6 month revals this has been negative US have been negative Hyperlipid emia screening 539189366 Z13.220 [id number] Norman Mera [facility] [address] [facility],[place] [address] 05/25/2022 15:13:39 05/25/2022 16:08:54 Active or passive immunization 501156371 Z23 patient advised he is due for flu shot, tdap, pneu & shingles Adult heal th examination 720498716 Z00.00 he is doing very well Hepatitis C screening 41 4101236 Z11.59 not needed Advance care planning 71 2845807 Z71.89 done Screening for malignant neoplasm of colon 397840425 Z12.11 will order if he relents will do DNA test [id number] Norman Mera [facility] [address] [facility],[place] [address] 06/04/2024 10:57:42 06/04/2024 11:31:27 Adult health examination 137998290 Z00.00 he is doing very well Health Concerns Section Related Observation LastModified by Organization Detai ls LastModified Time None Recorded Concern Status LastModified by Organization Details LastModified Time None Recorded Advance Directives Directive None Recorded Payers Insurance Date Sequence Insurance Name Policy Number Policy Jasso Covered Member ID Jasso Member ID Guarantor Name 06/04/2025 1 [place] [email or web address] Acosta Lee [id number] Acosta Santoson 05/25/2022 1 [place] [facility] (O) [id number] Tram Stewart [id number] Acosta Stewart 06/04/2024 2 [place] [id number] Acosta Stewart [id number] Acosta Stewart Notes Date Note Type Note Provider Name a nd Address Organization Details Recorded Time 1 text/html ROS as noted in the HPI here for rechk and is doing well had renal stone last week and was nasty seen in ER and states eventually passed 2 days after attack has his covid relates he is otherwise feeling well relates having heartburn at night on occ b ut needs to take an occ prilosec also has a lesion on hsi left nasal ridge KOMAL STEEN, SUE [address] [facility], [place], [address], [facility] 10/05/2020 16:33:56 2 text/html ROS as noted in the HPI patient is evaluated via tele/video assessment per patient consent during current pandemichere for rechk and is doing to do wellstates he is feeling wellhas been on prilosec and is occ having issues with acidno cp no sobbowels okno bloodbladder is fair some bph sx has nocturia x 3 Norman Mera, [address] [facility], [place], [address], [facility] 08/11/2021 10:46:14 2 text/html Annual WellnessReported by PatientSocial/Behavio ral HistoryFor diet and nutrition, patient reportshealthy diet. For fracture risk, patient reportsno history of fractures,no recent explained fracture,no sudden unexplained fractures, andno previous musculoskeletal injuries. For physical activity, patient reportsexercises on a regular basis,recent increase in physical activity, andgood physical condition. For additional lifestyle factors, patient reportsno tobacco use,no alcohol intake, andstopped drinking alcohol.Mental Status:For depression risk, patient reportsnever feels sad, empty, or tearful,no loss of interest in activities,no significant changes in weight,no sleep disturbances or insomnia,no agitation,no loss of energy,no feelings of worthlessness or guilt,no thoughts of suicide,no history of depression, andno history of mood disorders.Functional AbilityFor hearing, patient reportsno loss of hearing. For vision, patient reportsno vision problems.ROS as noted in the HPI The patient denies recent falls or recurrent [...] a daily basis Norman Mera, DO [address] [facility], [place], [address], [facility] 05/25/2022 15:50:45 4 text/html Annual WellnessReported by PatientSocial/Behavio ral HistoryFor diet and nutrition, patient reportshealthy diet. For fracture risk, patient reportsno history of fractures,no recent explained fracture,no sudden unexplained fractures, andno previous musculoskeletal injuries. For physical activity, patient reportsexercises on a regular basis,recent increase in physical activity, andgood physical condition. For additional lifestyle factors, patient reportsno tobacco use,no alcohol intake, andstopped drinking alcohol.Mental Status:For depression risk, patient reportsnever feels sad, empty, or tearful,no loss of interest in activities,no significant changes in weight,no sleep disturbances or insomnia,no agitation,no loss of energy,no feelings of worthlessness or guilt,no thoughts of suicide,no history of depression, andno history of mood disorders.Functional AbilityFor hearing, patient reportsno loss of hearing. For vision, patient reportsno vision problems.ROS as noted in the HPI here for cpe doing good no major [...] on a daily basis Norman Mera, [address] [facility], [place], [address], [facility] 06/04/2024 11:34:22
--- OUTSIDE RECORDS SUMMARY | 2025-06-27 13:31 | XMS_ITS | Clinical Summary ---
Author Organization [facility] Address [address] [place] [address] [place] [address] Phone Care Team Providers Care Plant Engineering Supervisor Name Role Phone Norman Mera DO Primary Care Provider [phone] Social History Tobacco Use Types Packs/Day Years [...] file Insurance MEDICARE PART A & B [employer] SUPPLEMENT MEDICARE PART A & B [employer] SUPPLEMENT MEDICARE PART A & B [employer] SUPPLEMENT MEDICARE PART A & B [employer] SUPPLEMENT MEDICARE PART A & B [employer] SUPPLEMENT MEDICARE PART A & B [employer]EX SUPPLEMENT Care Teams Plant Engineering Supervisor Relationship Specialty Start Date End Date Norman Mera DO [email or web address] PCP - General Internal Medicine 06/18/24 Additional Source Comments The information contained in this document represents components of the legal health record. It is not the complete legal health record.[facility]
== END 2025-06-27 12:24 | disposition home or self-care (01) ==
PROVIDERS: PCP Internal Medicine; Visit Provider Urology
DX: N20.0 Calculus of kidney (principal)
CPT/HCPCS: 99213; G2211

== ENCOUNTER → 2025-06-27 11:25 | Outpatient (BNVA) | payer MEDICARE, SELFPAY | PROVIDERS: PCP Internal Medicine; Visit Provider Urology | DX: N20.0 Calculus of kidney (principal); N28.1 Cyst of kidney, acquired; C64.9 Malignant neoplasm of unspecified kidney, except renal pelvis; R97.21 Rising PSA following treatment for malignant neoplasm of prostate | CPT/HCPCS: 99212 ==